=== PATIENT | male | born 1950 | race Caucasian/White ===

== ENCOUNTER 2022-01-14 12:40 | Outpatient (RCR) | payer OTHER, MEDICARE, BC, SELFPAY ==
[2022-01-14 13:06] LABS: Basophils Absolute Auto 0.02 K/uL (0.00-0.30); Basophils Percent Auto 0.4 % (0.0-3.0); Eosinophils Absolute Auto 0.14 K/uL (0.00-0.50); Eosinophils Percent Auto 2.9 % (0.0-7.0); Hematocrit 32.9 % (37.0-53.0); Hemoglobin* 10.8 gm/dL (13.5-17.5); Lymphocytes Absolute Auto 1.93 K/uL (0.90-2.90); Lymphocytes Percent Auto 39.7 % (20-44); Mean Corpuscular HGB Conc 33 gm/dL (32-36); Mean Corpuscular Hemoglobin 31 pg (26-34); Mean Corpuscular Volume 96 fL (80-100); Monocytes Percent Auto 10.7 % (0.0-11.0); Neutrophils Absolute Auto 2.25 K/uL (1.7-7.0); Neutrophils Percent Auto 46.3 % (42.0-72.0); Platelet Count* 143 K/uL (140-440); RDW Coefficient of Variation % 13.4 % (11.5-15.5); Red Blood Count 3.44 m/uL (4.30-5.90); White Blood Count* 4.86 K/uL (4.50-11.00)
[2022-01-14 13:14] LABS: Potassium* 4.3 mmol/L (3.6-5.1)
[2022-01-14 13:17] LABS: Creatinine* 1.1 mg/dL (0.5-1.5); Estimated Glomerular Filt Rate 72 ml/min; Glucose* 119 mg/dL (60-115)
[2022-01-14 13:20] LABS: Slide Review Reflex No
== END 2023-01-10 23:00 | disposition home or self-care (01) ==
LOC: LAB 12:40
PROVIDERS: PCP Internal Medicine
DX: Z94.0 Kidney transplant status (principal); Z79.899 Other long term (current) drug therapy
CPT/HCPCS: 36415; 82565; 82947; 84132; 85025

== ENCOUNTER 2022-03-30 13:30 | Outpatient (RCR) | payer OTHER, MEDICARE, BC, SELFPAY ==
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
== END 2022-03-30 14:39 | disposition home or self-care (01) ==
PROVIDERS: PCP Internal Medicine; Visit Provider Family Medicine
DX: M54.2 Cervicalgia (principal); Z51.89 Encounter for other specified aftercare
CPT/HCPCS: 97012; 97110; 97140; 97161; 97162

== ENCOUNTER 2023-01-13 09:35 | Outpatient (CLI) | payer MEDICARE, BC, SELFPAY | END 2023-01-13 09:36 | disposition home or self-care (01) | LOC: NFLDREF 12:39 | PROVIDERS: PCP Internal Medicine; Referring Provider Internal Medicine; Visit Provider Internal Medicine | DX: R06.02 Shortness of breath (principal); I10 Essential (primary) hypertension | CPT/HCPCS: 80053 ==

== ENCOUNTER 2023-02-18 07:59 | Outpatient (CLI) | payer MEDICARE, BC, SELFPAY | END 2023-02-18 08:00 | disposition home or self-care (01) | LOC: RAD 08:01 | PROVIDERS: PCP Internal Medicine; Visit Provider Internal Medicine | DX: I48.91 Unspecified atrial fibrillation (principal); I51.7 Cardiomegaly; I35.1 Nonrheumatic aortic (valve) insufficiency; I34.0 Nonrheumatic mitral (valve) insufficiency | CPT/HCPCS: 93306 ==

== ENCOUNTER 2023-03-15 08:45 | Outpatient (RCR) | payer OTHER, MEDICARE, BC, SELFPAY ==
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
== END 2023-03-21 09:02 | disposition home or self-care (01) ==
PROVIDERS: PCP Internal Medicine; Visit Provider Family Medicine
DX: M54.12 Radiculopathy, cervical region (principal); M54.16 Radiculopathy, lumbar region; M50.20 Other cervical disc displacement, unspecified cervical region; M50.30 Other cervical disc degeneration, unspecified cervical region; M51.26 Other intervertebral disc displacement, lumbar region; V89.2XXS Person injured in unspecified motor-vehicle accident, traffic, sequela; S13.4XXS Sprain of ligaments of cervical spine, sequela; Z51.89 Encounter for other specified aftercare
CPT/HCPCS: 97110; 97140; 97163

== ENCOUNTER 2023-08-05 08:59 | Outpatient (CLI) | payer MEDICARE, BC, SELFPAY ==
--- NOTE | 2023-08-05 09:22 | W.ANESCHARGE ---
Anesthesia Charges Start Date/Time Anesthesia Start Date: 08/05/23 Anesthesia Start Time: 09:40 Stop Date/Time Anesthesia Stop Date: 08/05/23 Anesthesia Stop Time: 10:04 Summary Extremes of Age - Over 70 or under 1: MDA
== END 2023-08-05 09:00 | disposition home or self-care (01) ==
LOC: OP CLINIC 08:59
PROVIDERS: PCP Internal Medicine; Visit Provider Internal Medicine
DX: K92.1 Melena (principal); K64.8 Other hemorrhoids; K57.30 Diverticulosis of large intestine without perforation or abscess without bleeding
CPT/HCPCS: 00811; 45378; 99100

== ENCOUNTER 2023-08-08 16:27 | Outpatient (CLI) | payer MEDICARE, BC, SELFPAY ==
[2023-08-08 22:38] LABS: PCR FLU A Negative PCR FLU A (Negative); PCR FLU B Negative PCR FLU B (Negative); PCR RSV Negative PCR RSV (Negative); SARS PCR* Negative SARS-CoV-2 (Negative)
== END 2023-08-08 16:28 | disposition home or self-care (01) ==
PROVIDERS: PCP Internal Medicine; Visit Provider Family Medicine
DX: R68.83 Chills (without fever) (principal)
CPT/HCPCS: 80048; 85025; 87631

== ENCOUNTER 2023-10-25 08:40 | Outpatient (CLI) | payer MEDICARE, BC, SELFPAY ==
--- OUTSIDE RECORDS SUMMARY | 2023-10-27 09:16 | XMS_ITS | Referral Summary ---
Author Name Unknown Organization [facility] Address [address] [place] [address] Care Team Providers Care Banquet Director Name Role Phone Elsewhere, Pcp Primary Care Provider Unavailabl e Source Comments Patient records contain information from all sites at [facility]. For routine questions regarding patient records, call [phone] during business hours, M-F 8:00 AM - 5:00 PM Central Time. Record requests for emergency care only can be directed to [phone] at any time.[facility] Encounters Date Type Department Care Team Description 08/08/2023 Orders Only Issac [facility] [place] [facility] in [place], [place] [address] [place] [address] External, Ordering Provider, MMiller from Last 3 Months Allergies Active Allergy Reactions Criticality Noted Date Comments Jay Inhibitors Cough 06/05/2013 Believed to have caused cough per [place] records Atomoxetine Other (see comments) 05/29/2004 Codeine Other (see comments) 05/28/2004 Phenytoin Hives (Reselect Reaction) 02/23/2010 Medications Medication Sig Dispensed Refills Start Date End Date Status melatonin 5 mg tablet Take 1 tablet by mouth every evening. 04/22/2017 Active coenzyme Q10 (CO Q-10) 200 mg capsule Take 1 tablet by mouth every evening. 05/22/2015 Active docosahexanoic acid/epa (FISH OIL ORAL) Take 1 capsule by mouth daily. 04/20/2013 Active MULTIVITAMIN ORAL Take 1 tablet by mouth daily. 05/22/2015 Active tacrolimus (PROGRAF) 1 mg capsuleIndications :Transplant Renal (HCC) Take 2 capsules (2 mg total) by mouth 2 (two) times a day. Take along with 0.5 mg caps for total dose 2.5 mg in the AM and 2 mg in the PM 360 capsule 3 01/20/2023 Active tacrolimus (Prograf) 0.5 mg capsuleIndications :Transplant Renal (HCC) Take 1 capsule (0.5 mg total) by mouth every morning. Take along with 1 mg caps for total dose 2.5 mg in the Am and 2 mg in the PM 90 capsule 3 01/20/2023 01/20/2024 Active mycophenolate (CELLCEPT) 250 mg capsuleIndications :Transplant Renal (HCC),High Risk Medication TAKE THREE CAPSULES BY MOUTH TWO TIMES A DAY 540 capsule 3 01/28/2023 Active metoprolol tartrate (LOPRESSOR) 25 mg tabletIndications: Transplant Renal (HCC) Take 1.5 tablets by mouth 2 times a day 270 tablet 3 02/21/2023 Active albuterol 90 mcg/actuation inhaler Inhale 2 puffs every 6 (six) hours as needed for shortness of breath or wheezing. 02/20/2022 Active gabapentin (NEURONTIN) 300 mg capsule Take 1-2 capsules by mouth at bedtime. Active tiZANidine (ZANAFLEX) 4 mg tablet Take 0.5 tablets by mouth every 6 (six) hours as needed for muscle spasms. 01/31/2023 Active cholecalciferol (VITAMIN D3) 125 mcg (5,000 Unit) capsule Take 125 mcg by mouth daily. Active B complex-vitamins (BALANCE B-50) tablet Take 1 tablet by mouth every evening. Active apixaban (ELIQUIS) 5 mg tablet Take 5 mg by mouth 2 (two) times a day. Active magnesium oxide (MAG-OX) 250 mg of magnesium tablet Take 250 mg by mouth 2 (two) times a day. Active turmeric 400 mg capsule Take 1 capsule by mouth 2 (two) times a day. Active cefUROXime (CEFTIN) 500 mg tablet Take 1 tablet (500 mg total) by mouth every 12 (twelve) hours. 12 tablet 03/30/2023 Active predniSONE (DELTASONE) 5 mg tablet take 0.5 tablets by mouth once daily. 45 tablet 3 05/09/2023 Active Active Problems Problem Noted Date Diagnosed Date Parotitis 03/30/2023 Otitis Externa Acute Left 03/30/2023 Obesity Body Mass Index 30-39.9 Adult 05/29/2019 Hypertriglyceridemia 05/29/2019 Congestive Heart Failure Vijaya stolic Chronic Heart Failure With Preserved Ejection Fraction 06/08/2016 Flutter Atrial 09/27/2015 Atrial Fibrillation Unspecified 09/26/2015 Coronary Artery Disease With Unstable Angina Dysthymia 04/28/2009 Major Depressive Disorder Single Episode Unspeci fied 04/23/2009 Overview: Depression Major NOS Peripheral Vascular Disease 04/23/2009 Overview: Claudication Immunodeficiency 07/27/2007 Overview: Immunosuppressed State NOS 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 Depression Major Recurrent Moderate 03/08/2006 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 Hypertension 05/28/2004 Immunizations Name Administration Dates Next Due Influenza (IM) Preservative Free 013,05/01/2012,03/27/2009,2006 Influenza Split 03/16/2011,03/27/2009,03/24/2001 Influenza, Seasonal, Injectable 05/17/2008,05/28,03/24/2001 Influenza, Unspecified 03/16/2011 PCV13 04/22/2014 PPSV23 05/01/2012,03/24/2001 SARS-COV-2 (COVID-19) - LUDMILA WHITLOCK (J&J)(Discontinued) 08/28/2020 Td, (Adult) Unspecified 12/14/2006 Tdap 05/01/2012 influenza vaccine quad (FLUZONE/FLUARIX) (6 months and older)(PF) 04/08/2016,04/22/2014,04/20/2013,2011,03/16/2011,03/27/2009,05/17/2008,1 07/20/2006,05/28/2004,03/24/2001 Social History Tobacco Use Types Packs/Day Years Used Date Smoking Tobacco: Never Smokeless Tobacco: Never Alcohol Use Standard Drinks/Week Comments Not Currently 0 (1 standard drink = 0.6 oz pur e alcohol) Social Connection and Isolation Panel [NHANES] A nswer Date Recorded Frequency of Communication with Friends and Fami ly Not on file 02/11/2020 How often do you get togethe r with friends or relatives? Three times a week 02/11/2020 Attends Gnosticist Services Not on file 02/10 Active Member of Clubs or Organizations Not on f ile 02/11/2020 Attends Club or Organization Meetings Not on pati e 02/11/2020 Marital Status Not on file 02/11/2020 AUDIT-C Answer Date Recorded Frequency of Alcohol Consumption 2-3 times a wee k 05/25/2019 Average Number of Drinks 1 or 2 019 Frequency of Binge Drinking Never 05/13 Overall Financial Resource Strain (CARDIA) Answe r Date Recorded How hard is it for you to pa y for the very basics like food, housing, medical care, and heating? Not very hard 04/05/2023 PHQ-2 Answer Date Recorded PHQ-2 Score 0 05/25/2019 [facility] - Occupational Stress Questionnaire Answer Date Recorded Do you feel stress - tense, restless, nervous, or anxious, or unable to sleep at night because your mind is troubled all the time - these days? Not at all 02/11/2020 Exercise Vital Sign Answer Date Recorde d On average, how many days pe r week do you engage in moderate to strenuous exercise (like a brisk walk)? 4 days 04/05/2023 On average, how many minutes do you engage in exercise at this level? 40 min 04/05/2023 Hunger Vital Sign Answer Date Recorded Within the past 12 months, y ou worried that your food would run out before you got the money to buy more. Never true 04/05/20 23 Within the past 12 months, t he food you bought just didn't last and you didn't have money to get more. Never true 04/05/2023 PRAPARE - Transportation Answer Date Re corded In the past 12 months, has l ack of transportation kept you from medical appointments or from getting medications? No 03/14 In the past 12 months, has l ack of transportation kept you from meetings, work, or from getting things needed for daily living? No 04/05/2023 Nutrition Answer Date Recorded Nutrition: EVOO Fat Source Unknown 04/05 On average, how many serving s of fruits and vegetables do you eat per day (serving size is equal to 1 cup or approximately the size of a tennis ball)? 3-5 04/05/2023 Dental Answer Date Recorded Dental: Regular Dentist Yes 04/05/20 Employment Answer Date Recorded Employment status Employed but not working due t o illness or injury 04/05/2023 Housing Stability Answer Date Recorded What is your living situation today? I [facility] live 04/05/2023 Education Answer Date Recorded What is the highest level of school you have completed or the highest degree you have received? Bachelor's degree (e.g., BA, AB, BS) 05/25/2019 Sex and Gender Information Value Date Recorded Sex Assigned at Male 05/08/2018 12:48 PM CANDY PULLER Gender Identity Male 05/08/2018 12:48 PM CANDY PULLER Sexual Orientation Straight 05/08/2018 12 :48 PM CANDY PULLER Last Filed Vital Signs Vital Sign Reading Time Taken Comments Blood Pressure 136/84 06/27/2023 11:15 AM CANDY PULLER Pulse 97 06/27/2023 11:15 AM CANDY PULLER Temperature 36.8 ??C (98.2 ??F) 03/30/2023 8:34 AM CD T Respiratory Rate 16 03/30/2023 8:34 AM CDT Oxygen Saturation 95% 03/30/2023 8:34 AM CDT Inhaled Oxygen Concentration - - Weight 90.8 kg (200 lb 2.8 oz) 03/30/2023 8:34 A M CDT Height 164.7 cm (5' 4.84) 03/24/2023 9:00 AM CD T Body Mass Index 33.47 03/24/2023 9:00 AM CDT Plan of Treatment Not on file Medical Devices Implanted Type Area Disability Manager Device Identifier Shelf Expiration Date Model / Serial / Lot Premier 4.0 X 12 - Hollins [id number] Implanted:Qty: 1 on 04/04/2015 Cardiac Stent [employer] Scientific Description:Device Manufactu rer - [employer]. Device Status Text - [id number]. Procedures Procedure Name Priority Date/Time Associated Diagnosis Comments TACROLIMUS LEVEL, B Routine 10/25/2023 8 :40 AM CDT EXTP BASIC METABOLIC PANEL, BLOOD Routine 08/08/2023 4:36 PM CANDY PULLER EXTP COMPLETE BLOOD COUNT, BLOOD Routine 08/08/2023 4:36 PM CANDY PULLER LIPID PANEL, S Routine 03/24/2023 6:45 AM CDT Transplant Renal (HCC) from Last 3 Months or Most Recently Relevant to Health Maintenance Results * Tacrolimus, Trough (10/25/2023 8:40 AM CDT) Pathologist [facility] [place] Tacrolimus, Trough 5.6 5.0-15.0 (Trough) ng/mL 10/26/2023 2:38 PM CDT [facility] Comment: ----ADDITIONAL INFORMATION---- Target steady-state trough concentrations vary depending on the type of transplant, concomitant immunosuppression, clinical/institutional protocols, and time post-transplant. Results should be interpreted in conjunction with this clinical information and any physical signs/symptoms of rejection/toxicity. Testing performed by Liquid Chromatography-Tandem Mass Spectrometry (LC-MS/MS). This test was developed and its performance characteristics determined by [facility] in a manner consistent with CLIA requirements. This test has not been cleared or approved by the U.S. Food and Drug Administration. Blood 10/25/2023 8:40 AM CDT 10/26/2023 11:11 AM CDT Lencho Mera M.D. LAB BLOOD NON ADD-ON [facility] [address] [place] [address] [facility] [address] [place] [address] [place] [address] * (ABNORMAL) EXT Basic Metabolic Panel, Blood (08/08/2023 4:36 PM CANDY PULLER) Pathologist [facility] [place] EXT Sodium 135 135 - 149 mmol/L SCANNED REPORT EXT Potassium 5.0 3.6 - 5.1 mmol/L SCANNED REPORT EXT Chloride 103 96 - 114 mmol/L SCANNED REPORT EXT CO2 21 20 - 32 mmol/L SCANNED REPORT EXT BUN (Blood Urea Nitrogen) 31(H) 7 - 30 mg/dL SCANNED REPORT EXT Creatinine 1.7(H) 0.5 - 1.5 mg/dL SCANNED REPORT EXT Estimated GFR (eGFR) 42 ml/min SCANNED REPORT EXT Calcium, Total 10.4 8.4 - 10.6 SCANNED REPORT EXT Glucose 133(H) 60 - 115 mg/dL SCANNED REPORT 08/08/2023 4:36 PM CANDY PULLER Narrative SCANNED REPORT - 08/17/2023 10:06 AM CANDY PULLER Source result document attached to Order Number [id number] ([id number]) dated 08/08/2023. External results verified in Extract by Cheyanne Sargent on 08/17/2023 at 10:03 AM. Ordering Provider Omer Moya NON ADD-ON SCANNED REPORT * (ABNORMAL) EXT Complete Blood Count, Blood (08/08/2023 4:36 PM CANDY PULLER) EXT Leukocytes 10.64 4.50 - 11.00 K/uL SCANNED REPORT EXT RBC 3.24(L) 4.30 - 5.90 m/uL SCANNED REPORT EXT Hemoglobin 10.0(L) 13.5 - 17.5 gm/dL SCANNED REPORT EXT Hematocrit 30.8(L) 37.0 - 53.0 % SCANNED REPORT EXT MCV 95 80 - 100 fL SCANNED REPORT EXT Platelet Count 147 140 - 440 K/uL SCANNED REPORT EXT Neutrophils 8.80(H) 1.7 - 7.0 K/uL SCANNED REPORT EXT Monocytes 0.80 0.00 - 0.90 K/UL SCANNED REPORT EXT Eosinophils 0.05 0.00 - 0.50 K/uL SCANNED REPORT EXT Basophils 0.05 0.00 - 0.30 K/uL SCANNED REPORT EXT Lymphocytes 1.00 0.90 - 2.90 K/uL SCANNED REPORT 08/08/2023 4:36 PM CANDY PULLER Narrative SCANNED REPORT - 08/17/2023 10:06 AM CANDY PULLER External results verified in Extract by Cheyanne Sargent on 08/17/2023 at 10:03 AM. Ordering Provider External M.D. LAB BLOO D NON ADD-ON SCANNED REPORT * (ABNORMAL) Lipid Panel (03/24/2023 6:45 AM CDT) Triglycerides 156(H) mg/dL 03/24/2023 8:00 AM CDT D[facility] Comment: ----REFERENCE VALUE---- Normal: <150 mg/dL Borderline High: 150-199 mg/dL High: 200-499 mg/dL Very High: > or =500 mg/dL Cholesterol, Total 142 mg/dL 2022 8:00 AM CDT DTL Comment: ----REFERENCE VALUE---- Desirable: < 200 mg/dL Borderline High: 200 - 239 mg/dL High: > or = 240 mg/dL Cholesterol, LDL, Calculated 81 mg/dL 03/24/2023 8:00 AM CDT DTL Comment: ----REFERENCE VALUE---- Desirable: <100 mg/dL Above Desirable: 100-129 mg/dL Borderline High: 130-159 mg/dL High: 160-189 mg/dL Very High: >=190 mg/dL ----ADDITIONAL INFORMATION---- LDL cholesterol calculated using the Parsons/NIH equation. Cholesterol, HDL, S 34(L) >=40 mg/dL 03/24/2023 8:00 AM CDT DTL Cholesterol, Non-HDL, Calculated 108 mg/dL 03/24/2023 8:00 AM CDT DTL Comment: ----REFERENCE VALUE---- Desirable: <130 mg/dL Above Desirable: 130-159 mg/dL Borderline High: 160-189 mg/dL High: 190-219 mg/dL Very High: > or =220 mg/dL Fasting (8 HR or more) Yes 03/24/2023 7:08 AM CDT DTL Blood (Blood, Venous) 03/24/2023 6:45 AM CDT 03/24/2023 7:08 AM CDT Kayla Roberts APRN, C.N.P., D.N.P. LAB BLOOD ADD-ON [facility] [place] [address] [place] [address], [place] DTL [facility] [address] [place] [address] from Last 3 Months or Most Recently Relevant to Health Maintenance Additional Health Concerns Infection Onset Date Last Indicated Protective Environment 01/11/2023 3 Advance Directives For more information, please contact: [phone] Documents on File Type Date Recorded Patient Blast Furnace Helper Expl anation Advance Directives 05/31/2016 12:00 AM Vinita cevallos document. See document viewer. * Full Code (Latest Code Status on File) Date Activated Date Inactivated Comments 03/30/2023 3:07 AM 03/30/2023 4:27 PM Question Answer Comments Full Code: Discussed Care Teams Banquet Director Relationship Specialty Start Date End Date Elsewhere, Pcp PCP - General Admissions Clinician 05/29/19 [facility] [address] [place], [place] [address] Laboratory Medicine 04/07/20
--- OUTSIDE RECORDS SUMMARY | 2023-10-27 09:16 | XMS_ITS ---
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 Marked as Active Follow-up on 03/04/1998 Kidney CoordinatorTXP POST KIDNEY NURSE TEAM 1 [facility] Phone: N/A Fax: N/A Email: N/A Infection History Noted Survival Infection Treatment Organism Resolved 03/30/2023 25 years Parotitis Donor Information Organ ABO Source Meets Risk Criteria HLA Match Mismatches Cross Match Right Kidney Transplanted O DBD A: B: DR: T cell (Negative) Right Kidney Donor Serology Results Anti-HBcAb HBC Total: Negative HBsAg HBsAg: Negative HBsAb No results on file HBV DNA No results on file Anti-HCV HCV: Negative HCV RNA No results on file HAV No results on file Anti-HIV I/II HIV-1: Negative HIV RNA No results on file Anti-HTLV I/II HTLV: Negative Coccidioides No results on file Anti-CMV CMV IgG: Negative Quantiferon TB No results on file EBV Total No results on file EBV IgG No results on file EBV IgM No results on file EBNA No results on file Measles No results on file Mumps No results on file Rubella No results on file Varicella Zoster No results on file HSV 1 No results on file HSV 2 No results on file Toxoplasm a No results on file Cryptococcus Ag No results on file Histoplasma No results on file Strongyloides No results on file Schistosom a No results on file Trypanosoma cruzi No results on file RPR/VDRL RPR: Positive Syphilis No results on file RSV No results on file SARS CoV-2 No results on file HBV IRMA No results on file HCV IRMA No results on file Care Team Name Role Phone Fax Email TXP POST KIDNEY NURSE TEAM 1 [facility] Kidney Coordinator N/A N/A N/A Nancy Escobar M.D. Transplant External Managing Cdl Bulk Driver [phone] [email or web address] Post-Transplant Pre-Transplant Transplanted: 03/04/1998 Referred: 12/13/1991 Discharged: 03/10/1998 Center waitlisted: 5
--- OUTSIDE RECORDS SUMMARY | 2023-10-27 09:16 | XMS_ITS ---
Author Name Unknown Organization [facility] Address [address] [place] [address] Care Team Providers Care Control Clerk Subassembly Name Role Phone Unavailable Unavailable Unavailable Surgery Details Not on file Complications Check Surgery Details section. Procedure Estimated Blood Loss Check Surgery Details section. Procedure Findings Check Surgery Details section. Procedure Specimens Taken Check Surgery Details section.
--- OUTSIDE RECORDS SUMMARY | 2023-10-27 09:16 | XMS_ITS | Clinical Summary ---
Author Name Unknown Organization [facility] Address [place], [place] [address] Care Team Providers Care [place] Room Hand Name Role Phone Alonso Coreas MD Primary Care Provider Allergies Active Allergy Reactions Criticality Noted Date Comments Jay Inhibitors Cough 06/05/2013 Believed to have caused cough per [place] records Atomoxetine Dizziness 05/29/2004 Codeine Other - Describe In Comment Field 05/28/2004 Patient states his pain systems were worse while taking the medication. Other reaction(s): Other (see comments) Phenytoin Hives 02/23/2010 Medications Medication Sig Dispensed Refills Start Date End Date Status tacrolimus (PROGRAF) 1 mg capsule Take 2 capsules by mouth 2 times daily. 0 12/18/2012 Active predniSONE (DELTASONE) 2.5 mg tablet Take 1 tablet by mouth once daily with a meal. 0 12/18/2012 Active multivitamin (DAILY MULTI-VITAMIN) tablet Take 1 tablet by mouth once daily. 0 12/18/2012 Active omega-3 fatty acids-vitamin E (FISH OIL) 1,000 mg cap Take 1 capsule by mouth 2 times daily. 0 12/18/2012 Active mycophenolate (CELLCEPT) 500 mg tablet Take 1 tablet by mouth 2 times daily. 0 12/18/2012 Active ferrous sulfate, 65 mg elemental, (IRON, FERROUS SULFATE,) 325 mg (65 mg iron) tablet Take 1 tablet by mouth once daily with a meal. 0 12/18/2012 Active Magnesium 100 mg tablet Take 1 tablet by mouth once daily. 0 12/18/2012 Active metoprolol tartrate (LOPRESSOR) 25 mg tablet Take 1 tablet by mouth 2 times daily. 0 03/23/2013 Active clopidogrel (PLAVIX) 75 mg tablet Take 75 mg by mouth once daily. Active ciclopirox solution (LOPROX) 8 % solution Apply to thick, discolored toenails once daily for a week. After a week, file the nails. Repeat this for 9 months, or until nails are clear. 02/12/2020 Active ciclopirox solution (LOPROX) 8 % solution Apply to thick, discolored toenails once daily for a week. After a week, file the nails. Repeat this for 9 months, or until nails are kim 02/20/2020 Active ketoconazole 2% topical (NIZORAL) cream APPLY ONTO AFFECTED AREA(S) OF SKIN 2-3 TIMES PER WEEK. 11/04/2020 Active mupirocin (BACTROBAN OINTMENT) ointment APPLY TOPICALLY TO AFFECTED AREA(S) THREE TIMES A DAY. 05/19/2020 Active triamcinolone 0.1% TOPICAL (KENALOG) 0.1 % lotion APPLY 2 TO 3 DROPS ONTO AFFECTED AREA(S) TWICE A DAY FOR ONE WEEK, THEN TWICE A DAY ON WEEKENDS ONLY. 11/04/2020 Active psyllium (METAMUCIL) 0.52 gram capsule Take 0.52 g by mouth. Active mycophenolate (CELLCEPT) 250 mg capsule TAKE THREE CAPSULES BY MOUTH TWO TIMES A DAY 10/25/2020 Active predniSONE (DELTASONE) 5 mg tablet TAKE 0.5 TABLET BY MOUTH ONCE DAILY 10/25/2020 Active tacrolimus 0.1% (PROTOPIC) 0.1 % ointment APPLY ONTO AFFECTED(s) AREAS OF SKIN TWO TIMES PER DAY TUESDAY - TUESDAY. 11/07/2020 Active benzonatate (TESSALON) 200 mg capsuleIndications:A cute cough Take 1 Capsule (200 mg) by mouth 3 times daily if needed for Cough. 20 Capsule 02/20/2022 Active albuterol HFA (PRO-AIR; VENTOLIN; PROVENTIL) 90 mcg/actuation inhalerIndications:W heezing,Acute cough Inhale 1-2 Puffs by mouth every 4 hours if needed for Wheezing. 1 Each 02/20/2022 Active tiZANidine (ZANAFLEX) 4 mg tabletIndications:Ar thropathy of cervical facet joint TAKE ONE TABLET BY MOUTH EVERY SIX HOURS NEEDED FOR MUSCLE SPASM 36 Tablet 4 01/31/2023 Active Eliquis 5 mg tablet TAKE ONE TABLET BY MOUTH TWICE DAILY* 01/20/2023 Active gabapentin (NEURONTIN) 300 mg capsuleIndications:L umbar radiculopathy Take 1-2 Capsules (300-600 mg) by mouth at bedtime. 36 Capsule 1 02/10/2023 Active Active Problems Problem Noted Date Diagnosed Date S/P kidney transplant 03/23/2013 Immunosuppressed status 03/23/2013 Asperger's disorder 10/05/2010 Sensorineural hearing loss, bilateral 03/02/2010 Adjustment disorder with mixed anxiety and depre ssed mood 02/10/2010 Immunizations Name Administration Dates Next Due Tdap 05/01/2012 Social History Tobacco Use Types Packs/Day Years Used Date Smoking Tobacco: Never Smokeless Tobacco: Never Tobacco Cessation:Counseling Given: Yes Alcohol Use Standard Drinks/Week Comments Not Asked 0 (1 standard drink = 0.6 oz pur e alcohol) Social Connections Answer Date Recorded Frequency of Communication with Friends and Fami ly Not on file 06/13/2021 Financial Resource Strain Answer Date R ecorded Difficulty of Paying Living Expenses Not on file 06/13/2021 Difficulty of Paying Living Expenses Not on file 06/13/2021 Sex and Gender Information Value Date Recorded Sex Assigned at Not on file Gender Identity Not on file Sexual Orientation Not on file Obstetrics History Last Filed Vital Signs Vital Sign Reading Time Taken Comments Blood Pressure 145/92 04/07/2023 11:15 AM CDT Pulse 82 04/07/2023 11:15 AM CDT Temperature 36.9 ??C (98.4 ??F) 04/07/2023 11:15 AM C DT Respiratory Rate 18 02/20/2022 4:22 PM CDT Oxygen Saturation 97% 04/07/2023 11:15 AM CDT Inhaled Oxygen Concentration - - Weight 93.4 kg (206 lb) 02/20/2022 4:22 PM CDT Height 165.1 cm (5' 5) 05/23/2015 11:00 AM FLOOR COVERING LAYER Body Mass Index 34.28 05/23/2015 11:00 AM FLOOR COVERING LAYER Plan of Treatment Health Maintenance Due Date Last Done Comments Pneumococcal series for age 65+ (1 of 2 - PCV) 957 Depression screening for age 12+ 1962 BMI (ht and wt on same day) for age 18+ 1968 Hepatitis C screening for age 18-79 1968 Zoster (shingles) series for age 50+ (1 of 2) 12/24/18 70 Colonoscopy through age 75 12/25/1995 Lipids for age 45-75 12/25/1995 Medicare Wellness for age 65+ 12/25/2015 COVID-19 vaccine series (2 - Irvin risk series) 09/1108/28/2020 Tetanus booster 05/01/2022 05/01/2012 Influenza for age 65+ 02/12/2024 Tdap Completed 05/01/2012 Care Teams [place] Hand Relationship Specialty Start Date End Date Alonso Coreas MD [address] [place] [address] PCP - General Internal Medicine 10/28/22
--- OUTSIDE RECORDS SUMMARY | 2023-10-27 09:16 | XMS_ITS | Encounter Summary ---
Author Name Unknown Organization [facility] Address [address] [place] [address] Care Team Providers Care Sql Report Developer Name Role Phone Elsewhere, Pcp Primary Care Provider Unavailabl e Encounter Details Date Type Department Care Team ([facility] st Contact Info) Description 08/08/2023 Orders Only Issac Guidry [place] [facility]eneration in [place], [place] [address] [place] [address] External, Ordering Provider, Kumar Social History Tobacco Use Types Packs/Day Years [...] relatives? Three times a week 02/11/2020 Attends Jew Services Not on file 02/10 Active Member [...] Answer Date Recorded PHQ-2 Score 0 05/25/2019 [facility] - Occupational Stress Questionnaire Answer Date Recorded [...] money to buy more. Never true 04/05/20 Within the past 12 months, t he [...] your living situation today? I have a [facility] place to live 04/05/2023 Education Answer Date Recorded What is the highest level of school you have completed or the highest degree you have received? Bachelor's degree (e.g., BA, AB, BS) 05/25/2019 Sex and Gender Information Value Date Recorded Sex Assigned at Male 05/08/2018 12:48 PM BRIDGE MANAGER Gender Identity Male 05/08/2018 12:48 PM BRIDGE MANAGER Sexual Orientation Straight 05/08/2018 12 :48 PM BRIDGE MANAGER documented as of this encounter Plan of Treatment Not on file documented as of this encounter Procedures Procedure Name Priority Date/Time Associated Diagnosis Comments EXTP BASIC METABOLIC PANEL, BLOOD Routine 08/08/2023 4:36 PM BRIDGE MANAGER EXTP COMPLETE BLOOD COUNT, BLOOD Routine 08/08/2023 4:36 PM BRIDGE MANAGER documented in this encounter Results * (ABNORMAL) EXT Basic Metabolic Panel, Blood (08/08/2023 4:36 PM BRIDGE MANAGER) EXT Sodium 135 135 - 149 mmol/L [...] 115 mg/dL SCANNED REPORT 08/08/2023 4:36 PM BRIDGE MANAGER Narrative SCANNED REPORT - 08/17/2023 10:06 AM BRIDGE MANAGER Source result document attached to Order Number [id number] ([id number]) dated 08/08/2023. External results verified in Extract by Cheyanne Sargent on 08/17/2023 at 10:03 AM. Ordering Provider External Kumar LAB NORMANO Griffin NON ADD-ON SCANNED REPORT * (ABNORMAL) EXT Complete Blood Count, Blood (08/08/2023 4:36 PM BRIDGE MANAGER) EXT Leukocytes 10.64 4.50 - 11.00 K/uL [...] 2.90 K/uL SCANNED REPORT 08/08/2023 4:36 PM BRIDGE MANAGER Narrative SCANNED REPORT - 08/17/2023 10:06 AM BRIDGE MANAGER External results verified in Extract by Cheyanne Sargent on 08/17/2023 at 10:03 AM. Ordering Provider External Kumar LAB NORMANO D NON ADD-ON SCANNED REPORT documented in this encounter Visit Diagnoses Not on filedocumented in this encounter Additional Health Concerns Infection Onset Date Last Indicated Resolved Time Protective Environment 01/11/2023 01/11/2023 Assessment Noted Time PHQ-9 Depression Total Score: 0 05/25/20 19 11:12 AM BRIDGE MANAGER documented as of this encounter Care Teams Sql Report Developer Relationship Specialty Start Date End Date Elsewhere, Pcp PCP - General Card Cutter 05/29/19 [facility] [address] [place], [place] [address] Laboratory Medicine 04/07/20 documented as of this encounter
--- OUTSIDE RECORDS SUMMARY | 2023-10-27 09:16 | XMS_ITS | Encounter Summary ---
Author Name Unknown Organization [facility] Address [address] [place] [address] Care Team Providers Care Flag Maker Name Role Phone Elsewhere, Pcp Primary Care Provider Unavailabl e Encounter Details Date Type Department Care Team (Latest Contact Info) Description 03/29/2023 Intake [facility] Social History Tobacco Use Types Packs/Day Years [...] relatives? Three times a week 02/11/2020 Attends Amish Services Not on file 02/10 Active Member [...] Answer Date Recorded PHQ-2 Score 0 05/25/2019 [place] [facility] Occupat ional [facility] - Occupational Stress [...] your living situation today? I have a [facility] place to live 04/05/2023 Education Answer Date Recorded What is the highest level of school you have completed or the highest degree you have received? Bachelor's degree (e.g., BA, AB, BS) 05/25/2019 Sex and Gender Information Value Date Recorded Sex Assigned at Male 05/08/2018 12:48 PM FILTER TIP CATCHER Gender Identity Male 05/08/2018 12:48 PM FILTER TIP CATCHER Sexual Orientation Straight 05/08/2018 12 :48 PM FILTER TIP CATCHER documented as of this encounter Plan of Treatment Not on file documented as of this encounter Visit Diagnoses Not on filedocumented in this encounter Additional Health Concerns Infection Onset Date Last Indicated Resolved Time Protective Environment 01/11/2023 01/11/2023 COVID19 Pending 03/29/2023 03/29/2023 03/29/2023 6 :17 PM CDT Assessment Noted Time PHQ-9 Depression Total Score: 0 05/25/20 11:12 AM FILTER TIP CATCHER documented as of this encounter Care Teams Flag Maker Relationship Specialty Start Date End Date Elsewhere, Pcp PCP - General Derrick Boat Operator 05/29/19 [facility] [address] [place], [place] [address] Laboratory Medicine 04/07/20 documented as of this encounter
--- OUTSIDE RECORDS SUMMARY | 2023-10-27 09:16 | XMS_ITS | Clinical Summary ---
Author Name Unknown Organization [facility] Address [address] [place] [address] Care Team Providers Care Rewrite Editor Name Role Phone Elsewhere, Pcp Primary Care Provider Unavailabl e Source Comments Patient records contain information from all sites at [facility]. For routine questions regarding patient records, call [phone] during business hours, M-F 8:00 AM - 5:00 PM Central Time. 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 from Last 3 Months Immunizations Name Administration Dates Next Due Influenza (IM) Preservative Free 013,05/01/2012,03/27/2009,2006 Influenza Split 03/16/2011,03/27/2009,03/24/2001 Influenza, Seasonal, Injectable 05/17/2008,05/28,03/24/2001 Influenza, Unspecified 03/16/2011 PCV13 04/22/2014 PPSV23 05/01/2012,03/24/2001 SARS-COV-2 (COVID-19) - LUDMILA WHITLOCK (J&J)(Discontinued) 08/28/2020 Td, (Adult) Unspecified 12/14/2006 Tdap 05/01/2012 influenza vaccine quad (FLUZONE/FLUARIX) (6 months and older)(PF) 04/08/2016,04/22/2014,04/20/2013,2011,03/16/2011,03/27/2009,05/17/2008,1 07/20/2006,05/28/2004,03/24/2001 Family History Medical History Relation Name Comments Hypertension Father Prakash Ramos Diabetes Maternal Grandmother Rosina Bejarano Colon cancer Mother Miriam Ramos Hypertension Mother Miriam Ramos Kidney disease Mother Miriam Ramos Relation Name Status Comments Father Prakash Ramos Maternal Grandmother Rosina Bejarano Mother Miriam Ramos Social History Tobacco Use Types Packs/Day Years [...] relatives? Three times a week 02/11/2020 Attends Congregational Services Not on file 02/10 Active Member [...] Answer Date Recorded PHQ-2 Score 0 05/25/2019 [facility] Occupat ional Health - Occupational Stress [...] your living situation today? I have a [facility] place to live 04/05/2023 Education Answer Date Recorded What is the highest level of school you have completed or the highest degree you have received? Bachelor's degree (e.g., BA, AB, BS) 05/25/2019 Sex and Gender Information Value Date Recorded Sex Assigned at Male 05/08/2018 12:48 PM POLICE DETENTION ATTENDANT Gender Identity Male 05/08/2018 12:48 PM POLICE DETENTION ATTENDANT Sexual Orientation Straight 05/08/2018 12 :48 PM POLICE DETENTION ATTENDANT Last Filed Vital Signs Vital Sign Reading Time Taken Comments Blood Pressure 136/84 06/27/2023 11:15 AM POLICE DETENTION ATTENDANT Pulse 97 06/27/2023 11:15 AM POLICE DETENTION ATTENDANT Temperature 36.8 ??C (98.2 ??F) 03/30/2023 8:34 AM CD T Respiratory Rate 16 03/30/2023 8:34 AM CDT Oxygen Saturation 95% 03/30/2023 8:34 AM CDT Inhaled Oxygen Concentration - - Weight 90.8 kg (200 lb 2.8 oz) 03/30/2023 8:34 A M CDT Height 164.7 cm (5' 4.84) 03/24/2023 9:00 AM CD T Body Mass Index 33.47 03/24/2023 9:00 AM CDT Plan of Treatment Health Maintenance Due Date Last Done Comments Depression Monitoring (PHQ-9) 1950 Zoster Vaccines (1 of 2) 1969 Pneumococcal vaccine (65+ years) (4 of 4 - PPSV23 or PCV20) 05/01/2017 04/22/2014, 05/01/2012, 03/24/2001 COVID-19 Vaccine (2 - Irvin risk series) 09/25/2020 08/28/2020 DTaP,Tdap,and Td Vaccines (2 - Td or Tdap) 05/01/2022 05/01/2012, 12/14/2006 Influenza Vaccine (#1) 2023 6, 04/22/2014, 04/20/2013, Additional history exists Fall Risk Screen (Annual) 06/13/2023 Lipid (Cholesterol) Screening 03/24/2024 03/24/2023, 05/15/2020, 05/28/2019, Additional history exists Office Visit for Blood Pressure Check / Re-check 03/24/2024 03/24/2023 Fasting Glucose for Diabetes Screening 08/08/2026 08/08/2023, 03/30/2023, 03/29/2023, Additional history exists Hepatitis C Screening Completed 03/11/2005 HPV Vaccines Aged Out No longer eligi ble based on patient's age to complete this topic Medical Devices Implanted Type Area Sped Teacher Device Identifier Shelf Expiration Date Model / Serial / Lot Premier 4.0 X 12 - Hollins [id number] Implanted:Qty: 1 on 04/04/2015 Cardiac Stent [employer] Description:Device Manufactu rer - [employer]. Device Status Text - [id number]. Procedures Procedure Name Priority Date/Time Associated Diagnosis Comments TACROLIMUS LEVEL, B Routine 10/25/2023 8 :40 AM CDT EXTP BASIC METABOLIC PANEL, BLOOD Routine 08/08/2023 4:36 PM POLICE DETENTION ATTENDANT EXTP COMPLETE BLOOD COUNT, BLOOD Routine 08/08/2023 4:36 PM POLICE DETENTION ATTENDANT LIPID PANEL, S Routine 03/24/2023 6:45 AM CDT Transplant Renal (HCC) from Last 3 Months or Most Recently Relevant to Health Maintenance Results * Tacrolimus, Trough (10/25/2023 8:40 AM CDT) Tacrolimus, Trough 5.6 5.0-15.0 (Trough) ng/mL 10/26/2023 2:38 PM CDT [facility] Comment: ----ADDITIONAL INFORMATION---- Target steady-state trough concentrations vary depending on the type of transplant, concomitant immunosuppression, clinical/institutional protocols, and time post-transplant. Results should be interpreted in conjunction with this clinical information and any physical signs/symptoms of rejection/toxicity. Testing performed by Liquid Chromatography-Tandem Mass Spectrometry (LC-MS/MS). This test was developed and its performance characteristics determined by [facility] in a manner consistent with CLIA requirements. This test has not been cleared or approved by the U.S. Food and Drug Administration. Blood 10/25/2023 8:40 AM CDT 10/26/2023 11:11 AM CDT Lencho Mera M.D. LAB BLOOD NON ADD-ON [facility] [address] [place] [address] [facility] [address] [place] [address] [place] [address] * (ABNORMAL) EXT Basic Metabolic Panel, Blood (08/08/2023 4:36 PM POLICE DETENTION ATTENDANT) [facility] EXT Sodium 135 135 - 149 mmol/L [...] 115 mg/dL SCANNED REPORT 08/08/2023 4:36 PM POLICE DETENTION ATTENDANT Narrative SCANNED REPORT - 08/17/2023 10:06 AM POLICE DETENTION ATTENDANT Source result document attached to Order Number [id number] ([id number]) dated 08/08/2023. External results verified in Extract by Cheyanne Sargent on 08/17/2023 at 10:03 AM. Ordering Provider Omer Heath LAB ODALYS Moya NON ADD-ON SCANNED REPORT * (ABNORMAL) EXT Complete Blood Count, Blood (08/08/2023 4:36 PM POLICE DETENTION ATTENDANT) EXT Leukocytes 10.64 4.50 - 11.00 K/uL [...] 2.90 K/uL SCANNED REPORT 08/08/2023 4:36 PM POLICE DETENTION ATTENDANT Narrative SCANNED REPORT - 08/17/2023 10:06 AM POLICE DETENTION ATTENDANT External results verified in Extract by Cheyanne Sargent on 08/17/2023 at 10:03 AM. Ordering Provider Omer Moya NON ADD-ON Performing Organization Address [facility] Co de Phone Number SCANNED REPORT * (ABNORMAL) Lipid Panel (03/24/2023 [...] Roberts APRN, C.N.P., D.N.P. LAB BLOOD ADD-ON [facility] [address] [place] [address], [facility] [address] [place] [address] from Last 3 Months or Most Recently Relevant to Health Maintenance Additional Health Concerns Infection Onset Date Last Indicated Protective Environment 01/11/2023 3 Advance Directives For more information, please contact: [phone] Documents on File Type Date Recorded Patient Link And Link Knitting Machine Operator Expl anation Advance Directives 05/31/2016 12:00 AM Vinita cevallos document. See document viewer. * Full Code (Latest Code Status on File) Date Activated Date Inactivated Comments 03/30/2023 3:07 AM 03/30/2023 4:27 PM Question Answer Comments Full Code: Discussed Care Teams Rewrite Editor Relationship Specialty Start Date End Date Elsewhere, Pcp PCP - General Cheese Production Supervisor 05/29/19 [facility] [address] [place], [place] [address] Laboratory Medicine 04/07/20
== END 2023-10-25 08:41 | disposition home or self-care (01) ==
LOC: NFLDREF 10-27 09:14
PROVIDERS: PCP Internal Medicine; Referring Provider Internal Medicine; Visit Provider Internal Medicine
DX: Q87.81 Alport syndrome (principal); D84.821 Immunodeficiency due to drugs; Z79.899 Other long term (current) drug therapy; Z94.0 Kidney transplant status
CPT/HCPCS: 80048; 82043; 82570

== ENCOUNTER 2023-11-16 10:31 | Outpatient (CLI) | payer MEDICARE, BC, SELFPAY ==
--- OUTSIDE RECORDS SUMMARY | 2023-11-16 10:33 | XMS_ITS | Referral Summary ---
Author Organization [facility] Address [address] [place] [address] Care Team Providers Care Metal Punch Press Operator Name Role Phone Elsewhere, Pcp Primary Care Provider Unavailabl e Source Comments Patient records contain information from all sites at [facility]. For routine questions regarding patient records, call [phone] during business hours, M-F 8:00 AM - 5:00 PM Central Time. Record requests for emergency care only can be directed to [phone] at any time.[facility] Encounters Date Type Department Care Team Description 10/25/2023 Orders Only Issac delacruz [facility] for Transplantation and Clinical Regeneration in [place], [place] [address] [place] [address] External, Ordering ProviderKumar 10/25/2023 Orders Only Issac delacruz [facility] Trans[facility] Clinical Regeneration in [place], [place] [address] [place] [address] External, Ordering ProviderKumar from Last 3 Months Allergies Active Allergy Reactions Criticality Noted Date Comments Jay Inhibitors Cough 06/05/2013 Believed to have caused cough per [place] records Atomoxetine Other (see comments) 05/29/2004 Codeine [...] relatives? Three times a week 02/11/2020 Attends Cheondoism Services Not on file 02/10 Active Member [...] Answer Date Recorded PHQ-2 Score 0 05/25/2019 [facility]at [facility] - Occupational Stress Questionnaire Answer Date Recorded [...] your living situation today? I have a [facility] place to live 04/05/2023 Education Answer Date Recorded What is the highest level of school you have completed or the highest degree you have received? Bachelor's degree (e.g., BA, AB, BS) 05/25/2019 Sex and Gender Information Value Date Recorded Sex Assigned at Male 05/08/2018 12:48 PM ACCOUNTING REPRESENTATIVE Gender Identity Male 05/08/2018 12:48 PM ACCOUNTING REPRESENTATIVE Sexual Orientation Straight 05/08/2018 12 :48 PM ACCOUNTING REPRESENTATIVE Last Filed Vital Signs Vital Sign Reading Time Taken Comments Blood Pressure 136/84 06/27/2023 11:15 AM ACCOUNTING REPRESENTATIVE Pulse 97 06/27/2023 11:15 AM ACCOUNTING REPRESENTATIVE Temperature 36.8 ??C (98.2 ??F) 03/30/2023 8:34 [...] on file Medical Devices Implanted Type Area Supervisor Public Message Service Device Identifier Shelf Expiration Date Model / Serial / Lot Premier 4.0 X 12 - Hollins [id number] Implanted:Qty: 1 on 04/04/2015 Cardiac Stent [employer]words Description:Device Manufactu rer - [employer]. Device Status Text - [id number]. Procedures Procedure Name Priority Date/Time Associated Diagnosis Comments EXTP BASIC METABOLIC PANEL, BLOOD Routine 10/25/2023 8:40 AM CDT EXTP COMPLETE BLOOD COUNT, BLOOD Routine 10/25/2023 8:40 AM CDT TACROLIMUS LEVEL, B Routine 10/25/2023 8 :40 AM CDT EXTM ALBUMIN, RANDOM, U Routine 10/25/2023 12:01 AM CDT LIPID PANEL, S Routine 03/24/2023 6:45 AM CDT Transplant Renal (HCC) from Last 3 Months or Most Recently Relevant to Health Maintenance Results * EXT Basic Metabolic Panel, Blood (10/25/2023 8:40 AM CDT) EXT Sodium 139 135 - 149 mmol/L SCANNED REPORT EXT Potassium 4.7 3.6 - 5.1 mmol/L SCANNED REPORT EXT Chloride 105 96 - 114 mmol/L SCANNED REPORT EXT CO2 25 20 - 32 mmol/L SCANNED REPORT EXT BUN (Blood Urea Nitrogen) 26 7 - 30 mg/dL SCANNED REPORT EXT Creatinine 1.1 0.5 - 1.5 mg/dL SCANNED REPORT EXT Estimated GFR (eGFR) 71 ml/min SCANNED REPORT EXT Calcium, Total 10.5 8.4 - 10.6 mg/dL SCANNED REPORT EXT Glucose 109 60 - 115 mg/dL SCANNED REPORT 10/25/2023 8:40 AM CDT Narrative SCANNED REPORT - 11/02/2023 11:21 AM CDT Source result document attached to Order Number [id number] ([id number]) dated 10/25/2023. External results verified in Extract by Nenita Walker on 11/02/2023 at 11:18 AM. Ordering Provider External Kumar Moya NON ADD-ON SCANNED REPORT * (ABNORMAL) EXT Complete Blood Count, Blood (10/25/2023 8:40 AM CDT) EXT Leukocytes 7.43 4.50 - 11.00 K/uL SCANNED REPORT EXT RBC 3.70(L) 4.30 - 5.90 m/uL SCANNED REPORT EXT Hemoglobin 10.9(L) 13.5 - 17.5 gm/dL SCANNED REPORT EXT Hematocrit 34.7(L) 37.0 - 53.0 % SCANNED REPORT EXT MCV 94 80 - 100 fL SCANNED REPORT EXT Platelet Count 232 140 - 440 K/uL SCANNED REPORT EXT Neutrophils 4.34 1.7 - 7.0 K/uL SCANNED REPORT EXT Lymphocytes 2.00 0.90 - 2.90 K/uL SCANNED REPORT EXT Monocytes 0.76 0.00 - 0.90 K/UL SCANNED REPORT EXT Eosinophils 0.31 0.00 - 0.50 K/uL SCANNED REPORT EXT Basophils 0.04 0.00 - 0.30 K/uL SCANNED REPORT 10/25/2023 8:40 AM CDT Narrative SCANNED REPORT - 11/02/2023 11:21 AM CDT External results verified in Extract by Nenita Walker on 11/02/2023 at 11:18 AM. Ordering Provider External M.DChaim LAB BLOO D NON ADD-ON SCANNED REPORT * Tacrolimus, Trough (10/25/2023 8:40 AM CDT) Tacrolimus, Trough 5.6 5.0-15.0 (Trough) ng/mL 10/26/2023 2:38 PM CDT [facility] Comment: ----ADDITIONAL INFORMATION---- Target steady-state trough concentrations vary depending on the type of transplant, concomitant immunosuppression, clinical/institutional protocols, and time post-transplant. Results should be interpreted in conjunction with this clinical information and any physical signs/symptoms of rejection/toxicity. Testing performed by Liquid Chromatography-Tandem Mass Spectrometry (LC-MS/MS). This test was developed and its performance characteristics determined by [facility] in a manner consistent with CLIA requirements. This test has not been cleared or approved by the U.S. Food and Drug Administration. Blood 10/25/2023 8:40 AM CDT 10/26/2023 11:11 AM CDT Lencho Mera M.D. LAB BLOOD NON ADD-ON [facility] [address] [place] [address] [facility] [address] [place] [address] [place] [address] * (ABNORMAL) EXT Albumin, Random, Urine (10/25/2023 12:01 AM CDT) EXT Creatinine, Urine 49.0 mg/dL SCANNED REPORT EXT Microalbumin-R andom, U 24 mg/dL SCANNED REPORT EXT Albumin/Creati nine Ratio 480(H) 0 - 30 MG/G SCANNED REPORT 10/25/2023 12:0 1 AM CDT Narrative SCANNED REPORT - 10/28/2023 4:52 PM CDT External results verified in Extract by Cheyanne Sargent on 10/28/2023 at 04:49 PM. Ordering Provider External Kumar LAB URIN E ORDERABLES Performing Organization Address [facility] Co de Phone Number [...] Roberts APRN, C.N.P., D.N.P. LAB BLOOD ADD-ON [facility] [address] [place] [address], [facility] [address] [place] [address] from Last 3 Months or Most Recently Relevant to Health Maintenance Additional Health Concerns Infection Onset Date Last Indicated Protective Environment 01/11/2023 3 Advance Directives For more information, please contact: [phone] Documents on File Type Date Recorded Patient Vocal Music Teacher Expl anation Advance Directives 05/31/2016 12:00 AM Vinita cevallos document. See document viewer. * Full Code (Latest Code Status on File) Date Activated Date Inactivated Comments 03/30/2023 3:07 AM 03/30/2023 4:27 PM Question Answer Comments Full Code: Discussed Care Teams Metal Punch Press Operator Relationship Specialty Start Date End Date Elsewhere, Pcp PCP - General Needle Leader 05/29/19 [facility] [address] [place], [place] [address] Laboratory Medicine 04/07/20
--- OUTSIDE RECORDS SUMMARY | 2023-11-16 10:33 | XMS_ITS | Encounter Summary ---
Author Organization [facility] Address [address] [place] [address] Care Team Providers Care Assistant Executive Housekeeper Name Role Phone Elsewhere, Pcp Primary Care Provider Unavailabl e Encounter Details Date Type Department Care Team ([facility] st Contact Info) Description 10/25/2023 Orders Only Issac Guidry [place] [facility] Trans[facility] Clinical Regeneration in [place], [place] [address] [place] [address] External, Ordering Provider, Kumar Social History Tobacco [...] relatives? Three times a week 02/11/2020 Attends Anglican Services Not on file 02/10 Active Member [...] Answer Date Recorded PHQ-2 Score 0 05/25/2019 [facility] [place] of Occupat ional Health - Occupational Stress [...] Sex Assigned at Male 05/08/2018 12:48 PM PARTS COUNTER SALES PERSON Gender Identity Male 05/08/2018 12:48 PM PARTS COUNTER SALES PERSON Sexual Orientation Straight 05/08/2018 12 :48 PM PARTS COUNTER SALES PERSON documented as of this encounter Plan of Treatment Not on file documented as of this encounter Procedures Procedure Name Priority Date/Time Associated Diagnosis Comments EXTP BASIC METABOLIC PANEL, BLOOD Routine 10/25/2023 8:40 AM CDT EXTP COMPLETE BLOOD COUNT, BLOOD Routine 10/25/2023 8:40 AM CDT documented in this encounter Results * EXT Basic Metabolic Panel, Blood [...] Source result document attached to Order Number [id number] ([id number]) dated 10/25/2023. External results verified in Extract by Nenita Walker on 11/02/2023 at 11:18 AM. Ordering Provider External MMiller LAB NORMANO D NON ADD-ON SCANNED REPORT * (ABNORMAL) EXT [...] LAB BLOO D NON ADD-ON SCANNED REPORT documented in this encounter Visit Diagnoses Not on filedocumented in this encounter Additional Health Concerns Infection Onset Date Last Indicated Resolved Time Protective Environment 01/11/2023 01/11/2023 Assessment Noted Time PHQ-9 Depression Total Score: 0 05/25/20 19 11:12 AM PARTS COUNTER SALES PERSON documented as of this encounter Care Teams Assistant Executive Housekeeper Relationship Specialty Start Date End Date Elsewhere, Pcp PCP - General Mixed Livestock Farmer 05/29/19 [facility] [address] [place], [place] [address] Laboratory Medicine 04/07/20 documented as of this encounter
--- OUTSIDE RECORDS SUMMARY | 2023-11-16 10:33 | XMS_ITS | Encounter Summary ---
Author Organization [facility] Address [address] [place] [address] Care Team Providers Care Industrial Arts Teacher Name Role Phone Elsewhere, Pcp Primary Care Provider Unavailabl e Encounter Details Date Type Department Care Team ([facility] st Contact Info) Description 10/25/2023 Orders Only Issac Guidry [place] [facility] Regeneration in [place], [place] [address] [place] [address] External, Ordering Provider, Kumar Social History Tobacco [...] relatives? Three times a week 02/11/2020 Attends Oriental Orthodox Services Not on file 02/10 Active Member [...] Answer Date Recorded PHQ-2 Score 0 05/25/2019 [facility] [place] of Occupat ional Health - Occupational Stress [...] Sex Assigned at Male 05/08/2018 12:48 PM POLYSILICON PREPARATION WORKER Gender Identity Male 05/08/2018 12:48 PM POLYSILICON PREPARATION WORKER Sexual Orientation Straight 05/08/2018 12 :48 PM POLYSILICON PREPARATION WORKER documented as of this encounter Plan of Treatment Not on file documented as of this encounter Procedures Procedure Name Priority Date/Time Associated Diagnosis Comments EXTM ALBUMIN, RANDOM, U Routine 10/25/2023 12:01 AM CDT documented in this encounter Results * (ABNORMAL) EXT Albumin, Random, Urine (10/25/2023 [...] 10/28/2023 at 04:49 PM. Ordering Provider External M.D. LAB URIN E ORDERABLES SCANNED REPORT documented in this encounter Visit Diagnoses Not on filedocumented in this encounter Additional Health Concerns Infection Onset Date Last Indicated Resolved Time Protective Environment 01/11/2023 01/11/2023 Assessment Noted Time PHQ-9 Depression Total Score: 0 05/25/20 19 11:12 AM POLYSILICON PREPARATION WORKER documented as of this encounter Care Teams Industrial Arts Teacher Relationship Specialty Start Date End Date Elsewhere, Pcp PCP - General Bridge Manager 05/29/19 [facility] [address] [place], [place] [address] Laboratory Medicine 04/07/20 documented as of this encounter
--- OUTSIDE RECORDS SUMMARY | 2023-11-16 10:33 | XMS_ITS ---
Author Organization [facility] Address [address] [place] [address] Care Team Providers Care Gasoline Service Attendant Name Role Phone Unavailable Unavailable Unavailable Surgery Details Not on file Complications Check Surgery Details section. Procedure Estimated Blood Loss Check Surgery Details section. Procedure Findings Check Surgery Details section. Procedure Specimens Taken Check Surgery Details section.
--- OUTSIDE RECORDS SUMMARY | 2023-11-16 10:33 | XMS_ITS | Encounter Summary ---
Author Organization [facility] Address [address] [place] [address] Care Team Providers Care Unmanned Aircraft Systems Roboticist Name Role Phone Elsewhere, Pcp Primary Care Provider Unavailabl e Encounter Details Date Type Department Care Team ([facility] st Contact Info) Description 08/08/2023 Orders Only Issac Guidry [place] [facility] Trans[facility] Clinical Regeneration in [place], [place] [address] [place] [address] External, Ordering Provider, Kumar Social History Tobacco [...] Answer Date Recorded PHQ-2 Score 0 05/25/2019 [facility] [place] of Occupat ional Health - Occupational Stress [...] Sex Assigned at Male 05/08/2018 12:48 PM RESEARCH INSTRUMENTATION TECHNICIAN Gender Identity Male 05/08/2018 12:48 PM RESEARCH INSTRUMENTATION TECHNICIAN Sexual Orientation Straight 05/08/2018 12 :48 PM RESEARCH INSTRUMENTATION TECHNICIAN documented as of this encounter Plan of Treatment Not on file documented as of this encounter Procedures Procedure Name Priority Date/Time Associated Diagnosis Comments EXTP BASIC METABOLIC PANEL, BLOOD Routine 08/08/2023 4:36 PM RESEARCH INSTRUMENTATION TECHNICIAN EXTP COMPLETE BLOOD COUNT, BLOOD Routine 08/08/2023 4:36 PM RESEARCH INSTRUMENTATION TECHNICIAN documented in this encounter Results * (ABNORMAL) EXT Basic Metabolic Panel, Blood (08/08/2023 4:36 PM RESEARCH INSTRUMENTATION TECHNICIAN) EXT Sodium 135 135 - 149 mmol/L [...] 115 mg/dL SCANNED REPORT 08/08/2023 4:36 PM RESEARCH INSTRUMENTATION TECHNICIAN Narrative SCANNED REPORT - 08/17/2023 10:06 AM RESEARCH INSTRUMENTATION TECHNICIAN Source result document attached to Order Number [id number] ([id number]) dated 08/08/2023. External results verified in Extract by Cheyanne Sargent on 08/17/2023 at 10:03 AM. Ordering Provider External MMiller LAB BLOO D NON ADD-ON SCANNED REPORT * (ABNORMAL) EXT Complete Blood Count, Blood (08/08/2023 4:36 PM RESEARCH INSTRUMENTATION TECHNICIAN) EXT Leukocytes 10.64 4.50 - 11.00 K/uL [...] 2.90 K/uL SCANNED REPORT 08/08/2023 4:36 PM RESEARCH INSTRUMENTATION TECHNICIAN Narrative SCANNED REPORT - 08/17/2023 10:06 AM RESEARCH INSTRUMENTATION TECHNICIAN External results verified in Extract by Cheyanne Sargent on 08/17/2023 at 10:03 AM. Ordering Provider External Kumar LAB NORMANO Griffin NON ADD-ON SCANNED REPORT documented in this encounter Visit Diagnoses Not on filedocumented in this encounter Additional Health Concerns Infection Onset Date Last Indicated Resolved Time Protective Environment 01/11/2023 01/11/2023 Assessment Noted Time PHQ-9 Depression Total Score: 0 05/25/20 19 11:12 AM RESEARCH INSTRUMENTATION TECHNICIAN documented as of this encounter Care Teams Unmanned Aircraft Systems Roboticist Relationship Specialty Start Date End Date Elsewhere, Pcp PCP - General National Sales Consultant 05/29/19 [facility] [place] [facility] [address] [place], [place] [address] Laboratory Medicine 04/07/20 documented as of this encounter
--- OUTSIDE RECORDS SUMMARY | 2023-11-16 10:33 | XMS_ITS | Clinical Summary ---
Author Organization [facility] Address [address] [place] [address] Care Team Providers Care Hazard Mitigation Officer Name Role Phone Elsewhere, Pcp Primary Care Provider Unavailabl e Source Comments Patient records contain information from all sites at [facility]. For routine questions regarding patient records, call [phone] during business hours, M-F 8:00 AM - 5:00 PM Central Time. Record requests for emergency care only can be directed to [phone] at any time.[facility] Allergies Active Allergy Reactions Criticality Noted Date Comments Jay Inhibitors Cough 06/05/2013 Believed to have caused cough per [place] records Atomoxetine Other (see comments) 05/29/2004 Codeine [...] Care Team Description 10/25/2023 Orders Only Issac Jessica [facility] Transplantation and Clinical Regeneration in [place], [place] [address] [place] [address] External, Ordering Provider, MMiller 10/25/2023 Orders Only Issac delacruz [facility] [place] Trans[facility] and Clinical [facility] in [place], [place] [address] [place] [address] External, Ordering Provider, MMiller from Last 3 Months Immunizations Name Administration [...] relatives? Three times a week 02/11/2020 Attends Taoist Services Not on file 02/10 Active Member [...] Answer Date Recorded PHQ-2 Score 0 05/25/2019 [facility] of Occupat ional Health - Occupational [...] your living situation today? I have a [facility] place to live 04/05/2023 Education Answer Date Recorded What is the highest level of school you have completed or the highest degree you have received? Bachelor's degree (e.g., BA, AB, BS) 05/25/2019 Sex and Gender Information Value Date Recorded Sex Assigned at Male 05/08/2018 12:48 PM SCAFFOLDING HELPER Gender Identity Male 05/08/2018 12:48 PM SCAFFOLDING HELPER Sexual Orientation Straight 05/08/2018 12 :48 PM SCAFFOLDING HELPER Last Filed Vital Signs Vital Sign Reading Time Taken Comments Blood Pressure 136/84 06/27/2023 11:15 AM SCAFFOLDING HELPER Pulse 97 06/27/2023 11:15 AM SCAFFOLDING HELPER Temperature 36.8 ??C (98.2 ??F) 03/30/2023 8:34 [...] 03/24/2024 03/24/2023 Fasting Glucose for Diabetes Screening 10/24/2026 10/25/2023, 08/08/2023, 03/30/2023, Additional history exists Hepatitis C Screening Completed 03/11/2005 HPV Vaccines Aged Out No longer eligi ble based on patient's age to complete this topic Medical Devices Implanted Type Area Application Chemist Device Identifier Shelf Expiration Date Model / Serial / Lot Premier 4.0 X 12 - Hollins [id number] Implanted:Qty: 1 on 04/04/2015 Cardiac Stent [employer] Description:Device Manufactu rer - [employer] Device Status Text - [id number]. Procedures Procedure Name Priority Date/Time Associated Diagnosis [...] Metabolic Panel, Blood (10/25/2023 8:40 AM CDT) [facility] EXT Sodium 139 135 - 149 mmol/L [...] Source result document attached to Order Number [id number] ([id number]) dated 10/25/2023. External results verified in Extract by Nenita Walker on 11/02/2023 at 11:18 AM. Ordering Provider External Kumar LAB BLOO D NON ADD-ON SCANNED REPORT * (ABNORMAL) EXT Complete Blood Count, Blood (10/25/2023 8:40 AM CDT) [facility] EXT Leukocytes 7.43 4.50 - 11.00 K/uL [...] 11/02/2023 at 11:18 AM. Ordering Provider External M.Marita LAB BLOO D NON ADD-ON SCANNED REPORT * Tacrolimus, Trough (10/25/2023 8:40 AM CDT) Tacrolimus, Trough 5.6 5.0-15.0 (Trough) ng/mL 10/26/2023 2:38 PM CDT [facility] Comment: ----ADDITIONAL INFORMATION---- Target steady-state trough concentrations vary depending on the type of transplant, concomitant immunosuppression, clinical/institutional protocols, and time post-transplant. Results should be interpreted in conjunction with this clinical information and any physical signs/symptoms of rejection/toxicity. Testing performed by Liquid Chromatography-Tandem Mass Spectrometry (LC-MS/MS). This test was developed and its performance characteristics determined by [facility] in a manner consistent with CLIA requirements. This test has not been cleared or approved by the U.S. Food and Drug Administration. Blood 10/25/2023 8:40 AM CDT 10/26/2023 11:11 AM CDT Lencho Mera M.D. LAB BLOOD NON ADD-ON [facility] [address] [place] [address] [facility] [address] [place] [address] [place] [address] * (ABNORMAL) EXT Albumin, Random, Urine (10/25/2023 [...] M.D. LAB URIN E ORDERABLES SCANNED REPORT * (ABNORMAL) Lipid Panel (03/24/2023 [...] Roberts APRN, C.N.P., D.N.P. LAB BLOOD ADD-ON [facility] [address] [place] [address], [place] DTL [facility] [address] [place] [address] from Last 3 Months or Most Recently Relevant to Health Maintenance Additional Health Concerns Infection Onset Date Last Indicated Protective Environment 01/11/2023 Advance Directives For more information, please contact: [phone] Documents on File Type Date Recorded Patient Soiled Linen Distributor Expl anation Advance Directives 05/31/2016 12:00 AM Vinita cevallos document. See document viewer. * Full Code (Latest Code Status on File) Date Activated Date Inactivated Comments 03/30/2023 3:07 AM 03/30/2023 4:27 PM Question Answer Comments Full Code: Discussed Care Teams Hazard Mitigation Officer Relationship Specialty Start Date End Date Elsewhere, Pcp PCP - General Bioinformaticist 05/29/19 [facility] [address] [place], [place] [address] Laboratory Medicine 04/07/20
--- OUTSIDE RECORDS SUMMARY | 2023-11-16 10:34 | XMS_ITS | Encounter Summary ---
Author Organization [facility] Address [address] [place] [address] Care Team Providers Care Lumber Estimator Name Role Phone Elsewhere, Pcp Primary Care [...] relatives? Three times a week 02/11/2020 Attends Bahai Services Not on file 02/10 Active Member [...] Answer Date Recorded PHQ-2 Score 0 05/25/2019 [facility] [place] of Occupat ional Health - Occupational Stress [...] your living situation today? I have a [facility] place to live 04/05/2023 Education Answer Date Recorded What is the highest level of school you have completed or the highest degree you have received? Bachelor's degree (e.g., BA, AB, BS) 05/25/2019 Sex and Gender Information Value Date Recorded Sex Assigned at Male 05/08/2018 12:48 PM GERIATRIC PHYSICIAN Gender Identity Male 05/08/2018 12:48 PM GERIATRIC PHYSICIAN Sexual Orientation Straight 05/08/2018 12 :48 PM GERIATRIC PHYSICIAN documented as of this encounter Plan of Treatment Not on file documented as of this encounter Visit Diagnoses Not on filedocumented in this encounter Additional Health Concerns Infection Onset Date Last Indicated Resolved Time Protective Environment 01/11/2023 01/11/2023 COVID19 Pending 03/29/2023 03/29/2023 03/29/2023 6 :17 PM CDT Assessment Noted Time PHQ-9 Depression Total Score: 0 05/25/20 11:12 AM GERIATRIC PHYSICIAN documented as of this encounter Care Teams Lumber Estimator Relationship Specialty Start Date End Date Elsewhere, Pcp PCP - General Cnc Grinder 05/29/19 [facility] [address] [place], [place] [address] Laboratory Medicine 04/07/20 documented as of this encounter
--- OUTSIDE RECORDS SUMMARY | 2023-11-16 10:34 | XMS_ITS | Clinical Summary ---
Author Organization [employer] [facility] Address [place], [place] [address] Care Team Providers Care Want Ad Clerk Name Role Phone Alonso Coreas MD Primary Care Provider Allergies Active Allergy Reactions Criticality Noted Date Comments Jay Inhibitors Cough 06/05/2013 Believed to have caused cough per [place] records Atomoxetine Dizziness 05/29/2004 Codeine Other - [...] 165.1 cm (5' 5) 05/23/2015 11:00 AM BORE MILL OPERATOR FOR PLASTIC Body Mass Index 34.28 05/23/2015 11:00 AM BORE MILL OPERATOR FOR PLASTIC Plan of Treatment Health Maintenance Due Date [...] 65+ 02/12/2024 Tdap Completed 05/01/2012 Care Teams Want Ad Clerk Relationship Specialty Start Date End Date Alonso Coreas MD [address] [place] [address] PCP - General Internal Medicine 10/28/22
--- OUTSIDE RECORDS SUMMARY | 2023-11-16 10:34 | XMS_ITS ---
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 Transplant External Managing Pullman Car Repairer [phone] [email or web address] Post-Transplant Pre-Transplant Transplanted: 03/04/1998 Referred: 12/13/1991 Discharged: 03/10/1998 Center waitlisted: 5
--- NOTE | 2023-11-16 11:00 | CRLHL7_ITS ---
For Patients: As a result of the Century Cures Act, medical imaging exams and procedure reports are released immediately into your electronic medical record. You may view this report before your referring provider. If you have questions, please contact your health care provider. INDICATION: Cough. Follow-up 11/08/2023 chest x-ray. TECHNIQUE: CT chest was acquired with 90 cc Isovue 370 IV contrast. COMPARISON: Chest radiographs 11/08/2019. FINDINGS: Lungs and pleura: Large right pleural effusion with mild associated atelectasis. No left-sided pleural effusion. No pneumothorax. Mild mosaic attenuation throughout the lungs, likely reflecting areas of air trapping related to small airways disease. 10 millimeter ground-glass attenuation nodule in the right middle lobe (series 3, image 56). Few tiny sub 4 millimeter solid nodules (for example 3 millimeter left upper lobe nodule, series 3, image 45). Heart and vasculature: Mild left atrial enlargement. Thoracic aorta and pulmonary artery are normal in caliber.Mild aortic valve calcification. Mitral annular calcifications. Moderate coronary artery calcification. Lymph nodes/mediastinum: No mediastinal, hilar, or axillary adenopathy. Chest wall: Mild gynecomastia. Upper abdomen: Status post cholecystectomy. Bilateral renal atrophy. Atherosclerosis. Bones: Mild thoracic spondylosis. Moderate/severe lower cervical spondylosis. IMPRESSION: 1. Large right pleural effusion with mild associated atelectasis. 2. 10 millimeter ground-glass attenuation nodule in the right middle lobe. This may reflect a localized infectious/inflammatory process. Recommend 6-12 month follow-up chest CT per Fleischner society guidelines. 3. Few additional tiny sub 4 millimeter nodules. These can be reassessed at 6-12 month follow-up as well. 4. Multiple cardiac findings, including mild left atrial enlargement, moderate coronary artery calcification, mild aortic valve calcification and mitral annular calcifications. 5. Mild mosaic attenuation within the lungs, likely reflecting areas of air trapping related to small airways disease. Please note that all CT scans at this facility use dose modulation, iterative reconstruction, and/or weight-based dosing when appropriate to reduce radiation dose to as low as reasonably achievable. Dictated by Ion Richardson MD @ 11/17/2023 8:38:24 AM (Electronically Signed)
== END 2023-11-16 10:32 | disposition home or self-care (01) ==
LOC: CT 10:31
PROVIDERS: PCP Internal Medicine; Visit Provider Internal Medicine
DX: R05.9 Cough, unspecified (principal); J90 Pleural effusion, not elsewhere classified; R91.8 Other nonspecific abnormal finding of lung field; I70.0 Atherosclerosis of aorta
CPT/HCPCS: 71260; Q9967

== ENCOUNTER 2023-12-22 09:49 | Outpatient (CLI) | payer MEDICARE, BC, SELFPAY ==
--- OUTSIDE RECORDS SUMMARY | 2023-12-22 09:54 | XMS_ITS | Encounter Summary ---
Author Organization [facility] Address [address] [place] [address] Care Team Providers Care Vp Product Marketing Name Role Phone Elsewhere, Pcp Primary Care Provider Unavailabl e Encounter Details Date Type Department Care Team ([facility] st Contact Info) Description 10/25/2023 Orders Only Issac Guidry [place] [facility] Trans[facility] and Clinical Regeneration in [place], [place] [address] [place] [address] External, Ordering Provider, Kumar Social History Tobacco [...] relatives? Three times a week 02/11/2020 Attends Mosque Services Not on file 02/10 Active Member [...] Answer Date Recorded PHQ-2 Score 0 05/25/2019 [facility] [place] of Occupat ional Health - Occupational Stress [...] Sex Assigned at Male 05/08/2018 12:48 PM ALODIZE MACHINE OPERATOR Gender Identity Male 05/08/2018 12:48 PM ALODIZE MACHINE OPERATOR Sexual Orientation Straight 05/08/2018 12 :48 PM ALODIZE MACHINE OPERATOR documented as of this encounter Plan of [...] Total Score: 0 05/25/20 19 11:12 AM ALODIZE MACHINE OPERATOR documented as of this encounter Care Teams Vp Product Marketing Relationship Specialty Start Date End Date Elsewhere, Pcp PCP - General Disaster Response Director 05/29/19 [facility] [address] [place], [place] [address] Laboratory Medicine 04/07/20 documented as of this encounter
--- OUTSIDE RECORDS SUMMARY | 2023-12-22 09:54 | XMS_ITS | Encounter Summary ---
Author Organization [facility] Address [address] [place] [address] Care Team Providers Care Plumber Name Role Phone Elsewhere, Pcp Primary Care [...] relatives? Three times a week 02/11/2020 Attends Confucianism Services Not on file 02/10 Active Member [...] Answer Date Recorded PHQ-2 Score 0 05/25/2019 [facility] [place] of Occupat ional Health - Occupational Stress [...] your living situation today? I have a [facility] place to live 04/05/2023 Education Answer Date Recorded What is the highest level of school you have completed or the highest degree you have received? Bachelor's degree (e.g., BA, AB, BS) 05/25/2019 Sex and Gender Information Value Date Recorded Sex Assigned at Male 05/08/2018 12:48 PM RENDERER Gender Identity Male 05/08/2018 12:48 PM RENDERER Sexual Orientation Straight 05/08/2018 12 :48 PM RENDERER documented as of this encounter Plan of Treatment Not on file documented as of this encounter Visit Diagnoses Not on filedocumented in this encounter Additional Health Concerns Infection Onset Date Last Indicated Resolved Time Protective Environment 01/11/2023 01/11/2023 COVID19 Pending 03/29/2023 03/29/2023 03/29/2023 6 :17 PM CDT Assessment Noted Time PHQ-9 Depression Total Score: 0 05/25/20 11:12 AM RENDERER documented as of this encounter Care Teams Plumber Relationship Specialty Start Date End Date Elsewhere, Pcp PCP - General Mink Farmer 05/29/19 [facility] [address] [place], [place] [address] Laboratory Medicine 04/07/20 documented as of this encounter
--- OUTSIDE RECORDS SUMMARY | 2023-12-22 09:54 | XMS_ITS | Encounter Summary ---
Author Organization [facility] Address [address] [place] [address] Care Team Providers Care Electrical Solderer Name Role Phone Elsewhere, Pcp Primary Care Provider Unavailabl e Encounter Details Date Type Department Care Team ([facility] st Contact Info) Description 11/28/2023 Orders Only Issac Guidry [place] for Transplantation and Clinical Regeneration in [place], [place] [address] [place] [address] Julieth Webster R.N., C.C.T.C. [address] [place] [phone] Transplant Renal (HCC) (Primary Dx) Social History Tobacco Use Types Packs/Day Years [...] Answer Date Recorded PHQ-2 Score 0 05/25/2019 [facility] - Occupational Stress Questionnaire Answer Date [...] Sex Assigned at Male 05/08/2018 12:48 PM INSECTICIDE SPRAYER Gender Identity Male 05/08/2018 12:48 PM INSECTICIDE SPRAYER Sexual Orientation Straight 05/08/2018 12 :48 PM INSECTICIDE SPRAYER documented as of this encounter Plan of Treatment Not on file documented as of this encounter Visit Diagnoses Diagnosis Transplant Renal (HCC)- Primary documented in this encounter Additional Health Concerns Infection Onset Date Last Indicated Resolved Time Protective Environment 01/11/2023 01/11/2023 Assessment Noted Time PHQ-9 Depression Total Score: 0 05/25/20 19 11:12 AM INSECTICIDE SPRAYER documented as of this encounter Care Teams Electrical Solderer Relationship Specialty Start Date End Date Elsewhere, Pcp PCP - General Fire Prevention Specialist 05/29/19 [facility] [address] [place], [place] [address] Laboratory Medicine 04/07/20 documented as of this encounter
--- OUTSIDE RECORDS SUMMARY | 2023-12-22 09:54 | XMS_ITS ---
Author Organization [facility] Address [address] [place] [address] Care Team Providers Care Insurance Processor Name Role Phone Unavailable Unavailable Unavailable Surgery Details Not on file Complications Check Surgery Details section. Procedure Estimated Blood Loss Check Surgery Details section. Procedure Findings Check Surgery Details section. Procedure Specimens Taken Check Surgery Details section.
--- OUTSIDE RECORDS SUMMARY | 2023-12-22 09:54 | XMS_ITS | Encounter Summary ---
Author Organization [facility] Address [address] [place] [address] Care Team Providers Care American Board Certified Orthotist Name Role Phone Elsewhere, Pcp Primary Care Provider Unavailabl e Encounter Details Date Type Department Care Team ([facility] st Contact Info) Description 10/25/2023 Orders Only Issac Guidry [place] [facility] in [place], [place] [address] [place] [address] External, Ordering Provider, Kumar Social History Tobacco [...] relatives? Three times a week 02/11/2020 Attends Islam Services Not on file 02/10 Active Member [...] Answer Date Recorded PHQ-2 Score 0 05/25/2019 [facility] [place] of Occupat ional Health - Occupational Stress [...] Sex Assigned at Male 05/08/2018 12:48 PM ACID CUTTER Gender Identity Male 05/08/2018 12:48 PM ACID CUTTER Sexual Orientation Straight 05/08/2018 12 :48 PM ACID CUTTER documented as of this encounter Plan of [...] Source result document attached to Order Number [id number] ([id number]) dated 10/25/2023. External results verified in Extract [...] Total Score: 0 05/25/20 19 11:12 AM ACID CUTTER documented as of this encounter Care Teams American Board Certified Orthotist Relationship Specialty Start Date End Date Elsewhere, Pcp PCP - General Art Manager 05/29/19 [facility] [address] [place], [place] [address] Laboratory Medicine 04/07/20 documented as of this encounter
--- OUTSIDE RECORDS SUMMARY | 2023-12-22 09:54 | XMS_ITS | Encounter Summary ---
Author Organization [facility] Address [address] [place] [address] Care Team Providers Care Plastic Hospital Products Assembler Name Role Phone Elsewhere, Pcp Primary Care Provider Unavailabl e Reason for Visit * Reason Comments Med Refill Encounter Details Date Type Department Care Team ([facility] st Contact Info) Description 12/12/2023 Refill Division of Nephrology and Hypertension in [place], [place] [address] [place] [address] Mayank Recio M.D. [address] [place] [phone] Med Refill Social History Tobacco Use Types Packs/Day Years [...] relatives? Three times a week 02/11/2020 Attends Latter-Day Services Not on file 02/10 Active Member [...] Answer Date Recorded PHQ-2 Score 0 05/25/2019 [facility] of Occupat ional [facility] - Occupational Stress Questionnaire Answer Date Recorded [...] Sex Assigned at Male 05/08/2018 12:48 PM REAL ESTATE MANAGER Gender Identity Male 05/08/2018 12:48 PM REAL ESTATE MANAGER Sexual Orientation Straight 05/08/2018 12 :48 PM REAL ESTATE MANAGER documented as of this encounter Plan of Treatment Not on file documented as of this encounter Visit Diagnoses Diagnosis Transplant Renal (HCC) documented in this encounter Additional Health Concerns Infection Onset Date Last Indicated Resolved Time Protective Environment 01/11/2023 01/11/2023 Assessment Noted Time PHQ-9 Depression Total Score: 0 05/25/20 19 11:12 AM REAL ESTATE MANAGER documented as of this encounter Care Teams Plastic [facility] Products Assembler Relationship Specialty Start Date End Date Elsewhere, Pcp PCP - General Anode Rebuilder 05/29/19 [facility] [address] [place], [place] [address] Laboratory Medicine 04/07/20 documented as of this encounter
--- OUTSIDE RECORDS SUMMARY | 2023-12-22 09:54 | XMS_ITS | Referral Summary ---
Author Organization [facility] Address [address] [place] [address] Care Team Providers Care Lumber Carrier Name Role Phone Elsewhere, Pcp Primary Care Provider Unavailabl e Source Comments Patient records contain information from all sites at [facility]. For routine questions regarding patient records, call [phone] during business hours, M-F 8:00 AM - 5:00 PM Central Time. Record requests for emergency care only can be directed to [phone] at any time.[facility] Encounters Date Type Department Care Team Description 12/12/2023 Refill Division of Nephrology and Hypertension in [place], [place] [address] [place] [address] Mayank Recio M.D. Med Refill 11/28/2023 [facility] [place], [place] [address] [place] [address] Julieth Webster R.N., C.C.T.C. Transplant Renal (HCC) (Primary Dx) 11/28/2023 Refill [facility] for Transplantation and Clinical Regeneration in [place], [place] [address] [place] [address] Julieth Webster R.N., C.C.T.C. Med Refill 10/25/2023 Orders [facility] in [place], [place] [address] [place] [address] External, Ordering ProviderKumar 10/25/2023 Orders Only Issac Guidry [facility] Transplantation and Clinical Regeneration in [place], [place] [address] [place] [address] External, Ordering ProviderKumar from Last 3 Months Allergies Active Allergy Reactions Criticality Noted Date Comments Jay Inhibitors Cough 06/05/2013 Believed to have caused cough per [place] records Atomoxetine Other (see comments) 05/29/2004 Codeine [...] daily. 05/22/2015 Active tacrolimus (PROGRAF) 1 mg capsuleIndicatio ns:Transplant Renal (HCC) Take 2 capsules (2 mg total) by mouth 2 (two) times a day. Take along with 0.5 mg caps for total dose 2.5 mg in the AM and 2 mg in the PM 360 capsule 3 01/20/2023 Active tacrolimus (Prograf) 0.5 mg capsuleIndicatio ns:Transplant Renal (HCC) Take 1 capsule (0.5 mg total) by mouth every morning. Take along with 1 mg caps for total dose 2.5 mg in the Am and 2 mg in the PM 90 capsule 3 01/20/2023 4 Active mycophenolate (CELLCEPT) 250 mg capsuleIndicatio ns:Transplant Renal (HCC),High Risk Medication TAKE THREE CAPSULES BY MOUTH TWO TIMES A DAY 540 capsule 3 01/28/2023 Active albuterol 90 mcg/actuation inhaler Inhale 2 [...] once daily. 45 tablet 3 05/09/2023 Active losartan (COZAAR) 25 mg tabletIndication s:Transplant Renal (HCC) Take 1 tablet (25 mg total) by mouth at bedtime. 90 tablet 3 11/29/2023 Active metoprolol tartrate (Lopressor) 25 mg tabletIndication s:Transplant Renal (HCC) Take 1.5 tablets by mouth 2 times a day 270 tablet 1 12/13/2023 Active metoprolol tartrate (LOPRESSOR) 25 mg tabletIndication s:Transplant Renal (HCC) Take 1.5 tablets by mouth 2 times a day 270 tablet 3 02/21/2023 4 Discontinued Active Problems Problem Noted Date Diagnosed Date [...] relatives? Three times a week 02/11/2020 Attends Mormon Services Not on file 02/10 Active Member [...] Answer Date Recorded PHQ-2 Score 0 05/25/2019 [facility] [place] of Occupat ional Health - Occupational Stress [...] Sex Assigned at Male 05/08/2018 12:48 PM BIT SHARPENER Gender Identity Male 05/08/2018 12:48 PM BIT SHARPENER Sexual Orientation Straight 05/08/2018 12 :48 PM BIT SHARPENER Last Filed Vital Signs Vital Sign Reading Time Taken Comments Blood Pressure 136/84 06/27/2023 11:15 AM BIT SHARPENER Pulse 97 06/27/2023 11:15 AM BIT SHARPENER Temperature 36.8 ??C (98.2 ??F) 03/30/2023 8:34 [...] on file Medical Devices Implanted Type Area Special Agent Group Insurance Device Identifier Shelf Expiration Date Model / Serial / Lot Premier 4.0 X 12 - [id number] [id number] Implanted:Qty: 1 on 04/04/2015 Cardiac Stent Mobilygen Description:Device Manufactu rer - [employer]. Device Status Text - [id number]. Procedures Procedure Name Priority Date/Time Associated Diagnosis [...] Metabolic Panel, Blood (10/25/2023 8:40 AM CDT) [facility] EXT Sodium 139 135 - 149 [...] Source result document attached to Order Number [id number] ([id number]) dated 10/25/2023. External results verified in Extract by Nenita Walker on 11/02/2023 at 11:18 AM. Ordering Provider External M.DChaim LAB BLOO D NON ADD-ON SCANNED REPORT * (ABNORMAL) EXT Complete Blood Count, Blood (10/25/2023 8:40 AM CDT) [facility] EXT Leukocytes 7.43 4.50 - 11.00 [...] on 11/02/2023 at 11:18 AM. Ordering Provider Omer Heath LAB BLOO D NON ADD-ON SCANNED REPORT * Tacrolimus, Trough (10/25/2023 8:40 AM CDT) Tacrolimus, Trough 5.6 5.0-15.0 (Trough) ng/mL 10/26/2023 2:38 PM CDT [facility] Comment: ----ADDITIONAL INFORMATION---- Target steady-state trough concentrations vary depending on the type of transplant, concomitant immunosuppression, clinical/institutional protocols, and time post-transplant. Results should be interpreted in conjunction with this clinical information and any physical signs/symptoms of rejection/toxicity. Testing performed by Liquid Chromatography-Tandem Mass Spectrometry (LC-MS/MS). This test was developed and its performance characteristics determined by [facility] in a manner consistent with CLIA requirements. This test has not been cleared or approved by the U.S. Food and Drug Administration. Blood 10/25/2023 8:40 AM CDT 10/26/2023 11:11 AM CDT Lencho Mera M.D. LAB BLOOD NON ADD-ON Performing Organization Address City/[facility] Co de Phone Number [facility] [address] [place] [address] [facility] [address] [place] [address] [place] [address] * (ABNORMAL) EXT Albumin, Random, Urine (10/25/2023 [...] 10/28/2023 at 04:49 PM. Ordering Provider External M.DChaim LAB URIN E ORDERABLES SCANNED REPORT * [...] 6:45 AM CDT 03/24/2023 7:08 AM CDT Vik Marie APRN.N.P., D.N.P. LAB BLOOD ADD-ON [facility] [address] [place] [address], [place] DTL [facility] [address] [place] [address] from Last 3 Months or Most Recently Relevant to Health Maintenance Additional Health Concerns Infection Onset Date Last Indicated Protective Environment 01/11/2023 3 Advance Directives For more information, please contact: [phone] Documents on File Type Date Recorded Patient Digital Advertising Analyst Expl anation Advance Directives 05/31/2016 12:00 AM Vinita cevallos document. See document viewer. * Full Code (Latest Code Status on File) Date Activated Date Inactivated Comments 03/30/2023 3:07 AM 03/30/2023 4:27 PM Question Answer Comments Full Code: Discussed Care Teams Lumber Carrier Relationship Specialty Start Date End Date Elsewhere, Pcp PCP - General Chili Pepper Grinder 05/29/19 [facility] [address] [place], [place] [address] Laboratory Medicine 04/07/20
--- OUTSIDE RECORDS SUMMARY | 2023-12-22 09:54 | XMS_ITS | Encounter Summary ---
Author Organization [facility] Address [address] [place] [address] Care Team Providers Care Physical Security Engineer Name Role Phone Elsewhere, Pcp Primary Care Provider Unavailabl e Reason for Visit * Reason Comments Med Refill Encounter Details Date Type Department Care Team ([facility] st Contact Info) Description 11/28/2023 [facility] in [place], [place] [address] [place] [phone] Julieth Webster R.N., C.C.T.C. [address] [place] [phone] Med Refill Social History Tobacco Use Types [...] relatives? Three times a week 02/11/2020 Attends Evangelical Services Not on file 02/10 Active Member [...] Answer Date Recorded PHQ-2 Score 0 05/25/2019 [facility] - Occupational Stress Questionnaire Answer Date [...] Sex Assigned at Male 05/08/2018 12:48 PM FIXED WING AIRCRAFT CREW CHIEF Gender Identity Male 05/08/2018 12:48 PM FIXED WING AIRCRAFT CREW CHIEF Sexual Orientation Straight 05/08/2018 12 :48 PM FIXED WING AIRCRAFT CREW CHIEF documented as of this encounter Plan of Treatment Not on file documented as of this encounter Visit Diagnoses Diagnosis Transplant Renal (HCC)- Primary documented in this encounter Additional Health Concerns Infection Onset Date Last Indicated Resolved Time Protective Environment 01/11/2023 01/11/2023 Assessment Noted Time PHQ-9 Depression Total Score: 0 05/25/20 19 11:12 AM FIXED WING AIRCRAFT CREW CHIEF documented as of this encounter Care Teams Physical Security Engineer Relationship Specialty Start Date End Date Elsewhere, Pcp PCP - General Store Stocker 05/29/19 [facility] [address] [place], [place] [address] Laboratory Medicine 04/07/20 documented as of this encounter
--- OUTSIDE RECORDS SUMMARY | 2023-12-22 09:54 | XMS_ITS | Clinical Summary ---
Author Organization [facility] Address [address] [place] [address] Care Team Providers Care Associate School Psychologist Name Role Phone Elsewhere, Pcp Primary Care Provider Unavailabl e Source Comments Patient records contain information from all sites at [facility]. For routine questions regarding patient records, call [phone] during business hours, M-F 8:00 AM - 5:00 PM Central Time. Record requests for emergency care only can be directed to [phone] at any time.[facility] Allergies Active Allergy Reactions Criticality Noted Date Comments Jay Inhibitors Cough 06/05/2013 Believed to have caused cough per [place] records Atomoxetine Other (see comments) 05/29/2004 Codeine [...] Refill Division of Nephrology and Hypertension in [place], [place] [address] [place] [address] Mayank Recio M.D. Med Refill 11/28/2023 [facility] in [place], [place] [address] [place] [address] Julieth Webster R.N., C.C.T.C. Transplant Renal (HCC) (Primary Dx) 11/28/2023 [facility] in [place], [place] [address] [place] [address] Julieth Webster R.N., C.C.T.C. Med Refill 10/25/2023 Orders [facility] in [place], [place] [address] [place] [address] External, Ordering Kumar Ho 10/25/2023 Orders Only Issac delacruz [facility] for Transplantation and Clinical [facility] in [place], [place] [address] [place] [address] External, Ordering ProviderKumar from Last 3 Months Immunizations Name Administration [...] relatives? Three times a week 02/11/2020 Attends Yarsanism Services Not on file 02/10 Active Member [...] Answer Date Recorded PHQ-2 Score 0 05/25/2019 [facility] [place] of Occupat ional Health - Occupational Stress [...] Sex Assigned at Male 05/08/2018 12:48 PM NAPHTHOL SOAPING MACHINE OPERATOR Gender Identity Male 05/08/2018 12:48 PM NAPHTHOL SOAPING MACHINE OPERATOR Sexual Orientation Straight 05/08/2018 12 :48 PM NAPHTHOL SOAPING MACHINE OPERATOR Last Filed Vital Signs Vital Sign Reading Time Taken Comments Blood Pressure 136/84 06/27/2023 11:15 AM NAPHTHOL SOAPING MACHINE OPERATOR Pulse 97 06/27/2023 11:15 AM NAPHTHOL SOAPING MACHINE OPERATOR Temperature 36.8 ??C (98.2 ??F) 03/30/2023 8:34 [...] - Td or Tdap) 05/01/2022 05/01/2012, 12/14/2006 Fall Risk Screen (Annual) 06/13/2023 Influenza Vaccine (#1) 2024 6, 04/22/2014, 04/20/2013, Additional history exists Lipid (Cholesterol) Screening 03/24/2024 03/24/2023, 05/15/2020, 05/28/2019, Additional history exists Office Visit for Blood Pressure Check / Re-check 03/24/2024 03/24/2023 Creatinine Level (Kidney Function Test) 10/24/2024 10/25/2023, 08/08/2023, 03/30/2023, Additional history exists Potassium Level 10/24/2024 10/25/2023, 07/15, 03/30/2023, Additional history exists Sodium Level 10/24/2024 10/25/2023, 07/15, 03/30/2023, Additional history exists Fasting Glucose for Diabetes Screening 10/24/2026 10/25/2023, 08/08/2023, 03/30/2023, Additional history exists Hepatitis C Screening Completed 03/11/2005 HPV Vaccines Aged Out No longer eligi ble based on patient's age to complete this topic Medical Devices Implanted Type Area Appian Bpm Developer Device Identifier Shelf Expiration Date Model / Serial / Lot Premier 4.0 X 12 - Hollins [id number] Implanted:Qty: 1 on 04/04/2015 Cardiac Stent HeyBubble Description:Device Manufactu rer - [employer]. Device Status Text - [id number]. Procedures Procedure Name Priority Date/Time Associated Diagnosis [...] Source result document attached to Order Number [id number] ([id number]) dated 10/25/2023. External results verified in Extract [...] External Kumar LAB BLOO D NON ADD-ON Performing Organization Address City/[facility] Co de Phone Number SCANNED REPORT * Tacrolimus, Trough (10/25/2023 8:40 AM CDT) Tacrolimus, Trough 5.6 5.0-15.0 (Trough) ng/mL 10/26/2023 2:38 PM CDT [facility] Comment: ----ADDITIONAL INFORMATION---- Target steady-state trough concentrations vary depending on the type of transplant, concomitant immunosuppression, clinical/institutional protocols, and time post-transplant. Results should be interpreted in conjunction with this clinical information and any physical signs/symptoms of rejection/toxicity. Testing performed by Liquid Chromatography-Tandem Mass Spectrometry (LC-MS/MS). This test was developed and its performance characteristics determined by [facility] in a manner consistent with CLIA requirements. This test has not been cleared or approved by the U.S. Food and Drug Administration. Blood 10/25/2023 8:40 AM CDT 10/26/2023 11:11 AM CDT Lencho Mera M.D. LAB BLOOD NON ADD-ON Performing Organization Address City/[facility] Co de Phone Number [facility] [address] [place] [address] [facility] [address] [place] [address] [place] [address] * (ABNORMAL) EXT Albumin, Random, Urine (10/25/2023 [...] 10/28/2023 at 04:49 PM. Ordering Provider External MMiller LAB URIN E ORDERABLES SCANNED REPORT * [...] Roberts APRN, C.N.P., D.N.P. LAB BLOOD ADD-ON [facility] [address] [place] [address], [place] DTL [facility] [address] [place] [address] from Last 3 Months or Most Recently Relevant to Health Maintenance Additional Health Concerns Infection Onset Date Last Indicated Protective Environment 01/11/2023 3 Advance Directives For more information, please contact: [phone] Documents on File Type Date Recorded Patient Seed District Sales Manager Expl anation Advance Directives 05/31/2016 12:00 AM Vinita cevallos document. See document viewer. * Full Code (Latest Code Status on File) Date Activated Date Inactivated Comments 03/30/2023 3:07 AM 03/30/2023 4:27 PM Question Answer Comments Full Code: Discussed Care Teams Associate School Psychologist Relationship Specialty Start Date End Date Elsewhere, Pcp PCP - General Filter Screen Cleaner 05/29/19 [facility] [address] [place], [place] [address] Laboratory Medicine 04/07/20
--- OUTSIDE RECORDS SUMMARY | 2023-12-22 09:55 | XMS_ITS ---
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 Transplant External Managing Daycare Manager [phone] [email or web address] Post-Transplant Pre-Transplant Transplanted: 03/04/1998 Referred: 12/13/1991 Discharged: 03/10/1998 Center waitlisted: 5
--- OUTSIDE RECORDS SUMMARY | 2023-12-22 09:55 | XMS_ITS | Clinical Summary ---
Author Organization [facility] Address [place], [place] [address] Care Team Providers Care Drapery Supervisor Name Role Phone Alonso Coreas MD Primary Care Provider [phone] Allergies Active Allergy Reactions Criticality Noted Date Comments Jay Inhibitors Cough 06/05/2013 Believed to have caused cough per [place] records Atomoxetine Dizziness 05/29/2004 Codeine Other - [...] mixed anxiety and depre ssed mood 02/10/2010 Encounters Date Type Department Care Team Description 12/22/2023 9:00 AM CDT Office Visit [facility] & [address] [address] Kee Pretty MD Arrived from Last 3 Months Immunizations Name Administration Dates Next Due Tdap [...] 165.1 cm (5' 5) 05/23/2015 11:00 AM CHIP WASHER Body Mass Index 34.28 05/23/2015 11:00 AM CHIP WASHER Plan of Treatment Upcoming Encounters Date Type Department Care Team (Late st Contact Info) Description 01/12/2024 3:40 PM CDT Office Visit [facility] [place] [address] [place] [phone] Armaan Newberry MD [address] [place] [address] Health Maintenance Due Date Last Done Comments [...] 65+ 02/12/2024 Tdap Completed 05/01/2012 Care Teams Drapery Supervisor Relationship Specialty Start Date End Date Alonso Coreas MD [address] [place] [address] PCP - General Internal Medicine 10/28/22
[2023-12-22 10:21] LABS: Chloride* 107 mmol/L (96-114); Potassium* 4.4 mmol/L (3.6-5.1); Sodium* 139 mmol/L (135-149)
[2023-12-22 10:24] LABS: Anion Gap 8 mEq/L (7-15); Blood Urea Nitrogen* 30 mg/dL (7-30); Carbon Dioxide* 24 mmol/L (20-32); Creatinine* 1.3 mg/dL (0.5-1.5); Estimated Glomerular Filt Rate 58 ml/min; Glucose* 115 mg/dL (60-115)
[2023-12-22 10:25] LABS: Calcium* 10.2 mg/dL (8.4-10.6)
== END 2023-12-22 09:50 | disposition home or self-care (01) ==
PROVIDERS: PCP Internal Medicine; Visit Provider Internal Medicine Nephrology
DX: Z94.0 Kidney transplant status (principal)
CPT/HCPCS: 36415; 80048

== ENCOUNTER 2024-02-24 12:32 | Outpatient (CLI) | payer MEDICARE, BC, SELFPAY ==
--- OUTSIDE RECORDS SUMMARY | 2024-02-24 12:36 | XMS_ITS ---
Author Organization [facility] Address [address] [place] [address] Care Team Providers Care Bottler Name Role Phone Unavailable Unavailable Unavailable Surgery Details Not on file Complications Check Surgery Details section. Procedure Estimated Blood Loss Check Surgery Details section. Procedure Findings Check Surgery Details section. Procedure Specimens Taken Check Surgery Details section.
--- OUTSIDE RECORDS SUMMARY | 2024-02-24 12:36 | XMS_ITS | Encounter Summary ---
Author Organization [facility] Address [address] [place] [address] Care Team Providers Care Collar Starcher Name Role Phone Elsewhere, Pcp Primary Care Provider Unavailabl e Reason for Visit * Reason Comments Med Refill Encounter Details Date Type Department Care Team ([facility] st Contact Info) Description 12/12/2023 Refill Division of Nephrology and Hypertension in [place], [place] [address] [place] [phone] Mayank Recio M.D. [address] [place] [phone] Med Refill Social History Tobacco Use Types [...] relatives? Three times a week 02/11/2020 Attends Adventism Services Not on file 02/10 Active Member [...] Answer Date Recorded PHQ-2 Score 0 05/25/2019 [facility] - Occupational Stress Questionnaire Answer [...] your living situation today? [facility] 04/05/2023 Education Answer Date Recorded What is the highest level of school you have completed or the highest degree you have received? Bachelor's degree (e.g., BA, AB, BS) 05/25/2019 Sex and Gender Information Value Date Recorded Sex Assigned at Male 05/08/2018 12:48 PM CUSTOM DESIGNER Gender Identity Male 05/08/2018 12:48 PM CUSTOM DESIGNER Sexual Orientation Straight 05/08/2018 12 :48 PM CUSTOM DESIGNER documented as of this encounter Plan of Treatment Upcoming Encounters Date Type Department Care Team (Latest Contact Info) Description 04/12/2024 6:50 AM CDT Appointment Department of Laboratory Medicine and Pathology, [place], [place] [address] [place] [address] Kayla Roberts APRN, C.N.P., D.N.P. [address] [place] [phone] 04/12/2024 7:00 AM CDT Appointment Department of Laboratory Medicine and Pathology, [place], [place] [address] [place] [address] Kayla Roberts APRN, C.N.P., D.N.P. [address] [place] [phone] 04/12/2024 7:30 AM CDT Appointment Department of Laboratory Medicine and Pathology, [place], [place] [address] [place] [address] Kayla Roberts APRN, C.N.P., D.N.P. [address] [place] [phone] 04/12/2024 2:30 PM CDT [facility] in [place], [place] [address] [place] [phone] Kayla Roberts APRN, C.N.P., D.N.P. [address] [place] [phone] 05/08/2024 8:20 AM CUSTOM DESIGNER Comprehensive Visit Department of Dermatology in [place], [place] [address] [place] [address] Cathryn Win APRN, C.N.P., M.S.N. [address] [place] [address] documented as of this encounter Visit Diagnoses Diagnosis Transplant Renal (HCC) documented in this encounter Additional Health Concerns Infection Onset Date Last Indicated Resolved Time Protective Environment 01/11/2023 01/11/2023 Assessment Noted Time PHQ-9 Depression Total Score: 0 05/25/20 11:12 AM CUSTOM DESIGNER documented as of this encounter Care Teams Collar Starcher Relationship Specialty Start Date End Date Elsewhere, Pcp PCP - General Ladies' Hat Trimmer 05/29/19 [facility] [address] [place], [place] [address] Laboratory Medicine 04/07/20 documented as of this encounter
--- OUTSIDE RECORDS SUMMARY | 2024-02-24 12:36 | XMS_ITS | Encounter Summary ---
Author Organization [facility] Address [address] [place] [address] Care Team Providers Care Product Representative Name Role Phone Elsewhere, Pcp Primary Care Provider Unavailabl e Encounter Details Date Type Department Care Team ([facility] st Contact Info) Description 12/22/2023 Orders Only Issac Guidry [place] for Transplantation and Clinical Regeneration in [place], [place] [address] [place] [address] External, Ordering Provider, Kumar Social History Tobacco [...] relatives? Three times a week 02/11/2020 Attends Congregation Services Not on file 02/10 Active Member [...] Answer Date Recorded PHQ-2 Score 0 05/25/2019 [facility] of Occupat ional Health - Occupational Stress [...] Sex Assigned at Male 05/08/2018 12:48 PM RAILCAR MECHANIC Gender Identity Male 05/08/2018 12:48 PM RAILCAR MECHANIC Sexual Orientation Straight 05/08/2018 12 :48 PM RAILCAR MECHANIC documented as of this encounter Plan of Treatment Upcoming Encounters Date Type Department Care Team (Latest Contact Info) Description 04/12/2024 6:50 AM CDT Appointment Department of Laboratory Medicine and Pathology, [facility] in [place], [place] [address] [place] [phone] Kayla Roberts APRN C.N.P., D.N.P. [address] [place] [phone] 04/12/2024 7:00 AM CDT Appointment Department of Laboratory Medicine and Pathology, [facility] in [place], [place] [address] [place] [phone] Kayla Roberts APRN, C.N.P., D.N.P. [address] [place] [phone] 04/12/2024 7:30 AM CDT Appointment Department of Laboratory Medicine and Pathology, [facility] in [place], [place] [address] [place] [phone] Kayla Roberts APRN, C.N.P., D.N.P. [address] [place] [phone] 04/12/2024 2:30 PM CDT [facility] in [place], [place] [address] [place] [phone] Kayla Roberts APRN, C.N.P., D.N.P. [address] [place] [phone] 05/08/2024 8:20 AM RAILCAR MECHANIC Comprehensive Visit Department of Dermatology in [place], [place] [address] [place] [phone] Cathryn Win APRN, C.N.P., M.S.N. [address] [place] [address] documented as of this encounter Procedures Procedure Name Priority Date/Time Associated Diagnosis Comments EXTP BASIC METABOLIC PANEL, BLOOD Routine 12/22/2023 10:02 AM CDT documented in this encounter Results * EXT Basic Metabolic Panel, Blood (12/22/2023 10:02 AM CDT) EXT Sodium 139 135 - 149 mmol/L SCANNED REPORT EXT Potassium 4.4 3.6 - 5.1 mmol/L SCANNED REPORT EXT Chloride 107 96 - 114 mmol/L SCANNED REPORT EXT CO2 24 20 - 32 mmol/L SCANNED REPORT EXT BUN (Blood Urea Nitrogen) 30 7 - 30 mg/dL SCANNED REPORT EXT Creatinine 1.3 0.5 - 1.5 mg/dL SCANNED REPORT EXT Estimated GFR (eGFR) 58 ml/min SCANNED REPORT EXT Calcium, Total 10.2 8.4 - 10.6 mg/dL SCANNED REPORT EXT Glucose 115 60 - 115 mg/dL SCANNED REPORT 12/22/2023 10:0 2 AM CDT Narrative SCANNED REPORT - 12/23/2023 10:28 AM CDT External results verified in Extract by Tash Casillas on 12/23/2023 at 10:26 AM. Ordering Provider External M.[facility] BLOO D NON ADD-ON SCANNED REPORT documented in this encounter Visit Diagnoses Not on filedocumented in this encounter Additional Health Concerns Infection Onset Date Last Indicated Resolved Time Protective Environment 01/11/2023 01/11/2023 Assessment Noted Time PHQ-9 Depression Total Score: 0 05/25/20 19 11:12 AM RAILCAR MECHANIC documented as of this encounter Care Teams Product Representative Relationship Specialty Start Date End Date Elsewhere, Pcp PCP - General Heel Trimmer 05/29/19 [facility] [address] [place], [place] [address] Laboratory Medicine 04/07/20 documented as of this encounter
--- OUTSIDE RECORDS SUMMARY | 2024-02-24 12:36 | XMS_ITS | Encounter Summary ---
Author Organization [facility] Address [address] [place] [address] Care Team Providers Care Mobile Service Rv Technician Name Role Phone Elsewhere, Pcp Primary Care Provider Unavailabl e Encounter Details Date Type Department Care Team ([facility] st Contact Info) Description 11/28/2023 Orders Only Issac Guidry [place] [facility] Transplantation and Clinical Regeneration in [place], [place] [address] [place] [phone] Julieth Webster R.N., C.C.T.C. [address] [place] [phone] Transplant Renal (HCC) (Primary Dx) Social History [...] relatives? Three times a week 02/11/2020 Attends Episcopal Services Not on file 02/10 Active Member [...] Score 0 05/25/2019 [facility] - Occupational Stress Questionnaire Answer Date [...] Sex Assigned at Male 05/08/2018 12:48 PM LACER AND TIER Gender Identity Male 05/08/2018 12:48 PM LACER AND TIER Sexual Orientation Straight 05/08/2018 12 :48 PM LACER AND TIER documented as of this encounter Plan of Treatment Upcoming Encounters Date Type Department Care Team (Latest Contact Info) Description 04/12/2024 6:50 AM CDT Appointment Department of Laboratory Medicine and Pathology, [place], [place] [address] [place] [phone] Kayla Roberts APRN C.N.P., D.N.P. [address] [place] [phone] 04/12/2024 7:00 AM CDT Appointment Department of Laboratory Medicine and Pathology, [place], [place] [address] [place] [address] Kayla Roberts APRN, C.N.P., D.N.P. [address] [place] [phone] 04/12/2024 7:30 AM CDT Appointment Department of Laboratory Medicine and Pathology, [place], [place] [address] [place] [phone] Kayla Roberts APRN, C.N.P., D.N.P. [address] [place] [phone] 04/12/2024 2:30 PM CDT [facility] in [place], [place] [address] [place] [phone] Kayla Roberts APRN, C.N.P., D.N.P. [address] [place] [phone] 05/08/2024 8:20 AM LACER AND TIER Comprehensive Visit Department of Dermatology in [place], [place] [address] [place] [phone] Cathryn Win APRN, C.N.P., M.S.N. [address] [place] [phone] documented as of this encounter Visit Diagnoses Diagnosis Transplant Renal (HCC)- Primary documented in this encounter Additional Health Concerns Infection Onset Date Last Indicated Resolved Time Protective Environment 01/11/2023 01/11/2023 Assessment Noted Time PHQ-9 Depression Total Score: 0 05/25/20 11:12 AM LACER AND TIER documented as of this encounter Care Teams Mobile Service Rv Technician Relationship Specialty Start Date End Date Elsewhere, Pcp PCP - General Food Beverage Server 05/29/19 [facility] [address] [place], [place] [address] Laboratory Medicine 04/07/20 documented as of this encounter
--- OUTSIDE RECORDS SUMMARY | 2024-02-24 12:36 | XMS_ITS | Encounter Summary ---
Author Organization [facility] Address [address] [place] [address] Care Team Providers Care Pressure Supervisor Name Role Phone Elsewhere, Pcp Primary Care Provider Unavailabl e Reason for Visit * Reason Comments Med Refill Encounter Details Date Type Department Care Team ([facility] st Contact Info) Description 01/23/2024 [facility] in [place], [place] [address] [place] [phone] Kayla Roberts, BETO, C.N.P., D.N.P. [address] [place] [phone] Med Refill Social History Tobacco Use Types [...] relatives? Three times a week 02/11/2020 Attends Scientologist Services Not on file 02/10 Active Member [...] Answer Date Recorded PHQ-2 Score 0 05/25/2019 [facility] of Occupat ional [facility] - Occupational Stress Questionnaire Answer Date [...] Sex Assigned at Male 05/08/2018 12:48 PM STONE OPERATOR Gender Identity Male 05/08/2018 12:48 PM STONE OPERATOR Sexual Orientation Straight 05/08/2018 12 :48 PM STONE OPERATOR documented as of this encounter Plan of Treatment Upcoming Encounters Date Type Department Care Team (Latest Contact Info) Description 04/12/2024 6:50 AM CDT Appointment Department of Laboratory Medicine and Pathology, [place], [place] [address] [place] [address] Kayla Roberts APRN, C.N.P., D.N.P. [address] [place] [phone] 04/12/2024 7:00 AM CDT Appointment Department of Laboratory Medicine and Pathology, [facility] in [place], [place] [address] [place] [phone] Kayla Roberts APRN, C.N.P., D.N.P. [address] [place] [phone] 04/12/2024 7:30 AM CDT Appointment Department of Laboratory Medicine and Pathology, [place], [place] [address] [place] [address] Kayla Roberts APRN, C.N.P., D.N.P. [address] [place] [phone] 04/12/2024 2:30 PM CDT [facility] in [place], [place] [address] [place] [address] Kayla Roberts APRN, C.N.P., D.N.P. [address] [place] [phone] 05/08/2024 8:20 AM STONE OPERATOR Comprehensive Visit Department of Dermatology in [place], [place] [address] [place] [address] Cathryn Win APRN, C.N.P., M.S.N. [address] [place] [phone] documented as of this encounter Visit Diagnoses Diagnosis Transplant Renal (HCC) documented in this encounter Additional Health Concerns Infection Onset Date Last Indicated Resolved Time Protective Environment 01/11/2023 01/11/2023 Assessment Noted Time PHQ-9 Depression Total Score: 0 05/25/20 11:12 AM STONE OPERATOR documented as of this encounter Care Teams Pressure Supervisor Relationship Specialty Start Date End Date Elsewhere, Pcp PCP - General Director Fixed Income 05/29/19 [facility] [address] [place], [place] [address] Laboratory Medicine 04/07/20 documented as of this encounter
--- OUTSIDE RECORDS SUMMARY | 2024-02-24 12:36 | XMS_ITS | Encounter Summary ---
Author Organization [facility] Address [address] [place] [address] Care Team Providers Care Senior Technical Architect Name Role Phone Elsewhere, Pcp Primary Care Provider Unavailabl e Reason for Referral * Outpatient (Routine) - Authorized Specialty Diagnoses / Procedures Referred By Contac t Referred To Contact Diagnoses Transplant Renal (HCC) Procedures Short renal clearance: Iothalamate/Iohexol (Renal Studies Unit) Kayla Roberts APRN, C.N.P., D.N.P. [address] [place] [phone] [facility] Referral ID Status Reason Start Date Expiration Date V isits Requested Visits Authorized [id number] Authorized 02/15/2024 02/14/2025 1 1 * Outpatient (Routine) - Authorized Specialty Diagnoses / Procedures Referred By Contac t Referred To Contact Dermatology Diagnoses Transplant Renal (HCC) Kayla Roberts APRN, C.N.P., D.N.P. [address] [place] [phone] [facility] Referral ID Status Reason Start Date Expiration Date V isits Requested Visits Authorized [id number] Authorized 02/15/2024 08/16/2025 1 1 Reason for Visit * Reason Onset Date Comments Annual Exam 02/14/2024 Encounter Details Date Type Department Care Team (Latest Contact Info) Description 02/14/2024 Clinical Communication Issac Jessica [facility] for Transplantation and Clinical Regeneration in [place], [place] [address] [place] [address] Kayla Roberts APRN, C.N.Sumeet., Griffin.N.P. [address] [place] [address] Annual Exam Social History Tobacco Use Types Packs/Day Years [...] relatives? Three times a week 02/11/2020 Attends Tenriism Services Not on file 02/10 Active Member [...] PHQ-2 Score 0 05/25/2019 [facility] of Occupat ional Health - Occupational Stress [...] your living situation today? I have a [facility] place to live 04/05/2023 Education Answer Date Recorded What is the highest level of school you have completed or the highest degree you have received? Bachelor's degree (e.g., BA, AB, BS) 05/25/2019 Sex and Gender Information Value Date Recorded Sex Assigned at Male 05/08/2018 12:48 PM BATTERY TESTER FIELD Gender Identity Male 05/08/2018 12:48 PM BATTERY TESTER FIELD Sexual Orientation Straight 05/08/2018 12 :48 PM BATTERY TESTER FIELD documented as of this encounter Plan of Treatment Upcoming Encounters Date Type Department Care Team (Latest Contact Info) Description 04/12/2024 6:50 AM CDT Appointment Department of Laboratory Medicine and Pathology, [facility], in [place], [place] [address] [place] [address] Kayla Roberts APRN, C.N.P., D.N.P. [address] [place] [phone] 04/12/2024 7:00 AM CDT Appointment Department of Laboratory Medicine and Pathology, [facility] in [place], [place] [address] [place] [address] Kayla Roberts APRN, C.N.P., D.N.P. [address] [place] [phone] 04/12/2024 7:30 AM CDT Appointment Department of Laboratory Medicine and Pathology, [facility] in [place], [place] [address] [place] [phone] Kayla Roberts APRN, C.N.Milady, D.N.P. [address] [place] [phone] 04/12/2024 2:30 PM CDT [facility] in [place], [place] [address] [place] [phone] Kayla Roberts APRN, C.N.P., D.N.P. [address] [place] [phone] 05/08/2024 8:20 AM BATTERY TESTER FIELD Comprehensive Visit Department of Dermatology in [place], [place] [address] [place] [phone] Cathryn Win APRN, C.N.P., M.S.N. [address] [place] [phone] Scheduled Orders Name Type Priority Associated Diagnoses Orde r Schedule CBC with Differential, Blood Lab Routine Transplant Renal (HCC) Expected: 04/12/2024 (Approximate), Expires: 05/16/2025 Prothrombin Time (PT) Lab Routine Transplant Renal ([facility]) Expected: 04/12/2024 (Approximate), Expires: 05/16/2025 APTT (Activated Partial Thromboplastin Time) Lab Routine Transplant Renal ([facility]) Expected: 04/12/2024 (Approximate), Expires: 05/16/2025 Comprehensive Metabolic Panel Lab Routine Transplant Renal ([facility]) Expected: 04/12/2024 (Approximate), Expires: 05/16/2025 Phosphorus Inorganic Lab Routine Transplant Renal ([facility]) Expected: 04/12/2024 (Approximate), Expires: 05/16/2025 Magnesium Lab Routine Transplant Renal ([facility]) Expected: 04/12/2024 (Approximate), Expires: 05/16/2025 Lipid Panel Lab Routine Transplant Renal ([facility]) Expected: 04/12/2024 (Approximate), Expires: 05/16/2025 Hemoglobin A1c Lab Routine Transplant Renal ([facility]) Expected: 04/12/2024 (Approximate), Expires: 05/16/2025 Short renal clearance: Iothalamate/Iohexol (Renal Studies Unit) Procedures Routine Transplant Renal ([facility]) Expected: 04/12/2024 (Approximate), Expires: 05/16/2025 Heath/Kid 5cc Storage, Blood Lab Routine Transplant Renal ([facility]) Expected: 04/12/2024 (Approximate), Expires: 05/16/2025 HLA Class I SAB Antibody Screen Lab HLA Routine Transplant Renal ([facility]) Expected: 04/12/2024 (Approximate), Expires: 05/16/2025 HLA Class II SAB Antibody Screen Lab HLA Routine Transplant Renal ([facility]) Expected: 04/12/2024 (Approximate), Expires: 05/16/2025 Tacrolimus, Trough Lab Routine Transplant Renal ([facility]) Expected: 04/12/2024 (Approximate), Expires: 05/16/2025 Mycophenolic Acid Lab Routine Transplant Renal ([facility]) Expected: 04/12/2024 (Approximate), Expires: 05/16/2025 25-Hydroxyvitamin D2 and D3 Lab Routine Transplant Renal ([facility]) Expected: 04/12/2024 (Approximate), Expires: 05/16/2025 Parathyroid Hormone (PTH) Lab Routine Transplant Renal ([facility]) Expected: 04/12/2024 (Approximate), Expires: 05/16/2025 Calcium, Total Lab Routine Transplant Renal ([facility]) Expected: 04/12/2024 (Approximate), Expires: 05/16/2025 BKV DNA Detect/Quant Microbiology Routine Transplant Renal ([facility]) Expected: 04/12/2024 (Approximate), Expires: 05/16/2025 Heath/Kid 5cc Storage, Blood Lab Routine Transplant Renal ([facility]) Expected: 04/12/2024 (Approximate), Expires: 05/16/2025 Heath/Kid 10cc Storage, Blood Lab Routine Transplant Renal ([facility]) Expected: 04/12/2024 (Approximate), Expires: 05/16/2025 Urinalysis, with Microscopic: Urine, Midstream Lab Routine Transplant Renal ([facility]) Expected: 04/12/2024 (Approximate), Expires: 05/16/2025 Bacterial Culture, Aerobic + Susceptibility, Urine Microbiology Routine Transplant Renal ([facility]) Expected: 04/12/2024 (Approximate), Expires: 05/16/2025 Protein, Total, 24 hour, Urine Lab Routine Transplant Renal ([facility]) Expected: 04/12/2024 (Approximate), Expires: 02/14/2025 Albumin, 24 hour Collection, Urine Lab Routine Transplant Renal ([facility]) Expected: 04/12/2024 (Approximate), Expires: 02/14/2025 PSA (Prostate-Specific Antigen) Screen Lab Routine Transplant Renal ([facility]) Expected: 04/12/2024 (Approximate), Expires: 05/16/2025 Scheduled Referrals Name Type Priority Associated Diagnoses Order Schedule Dermatology - Transplant consult (clinic) Outpatient Referral Routine Transplant Renal ([facility]) Expected: 04/12/2024 (Approximate), Expires: 05/16/2025 documented as of this encounter Visit Diagnoses Diagnosis Transplant Renal (HCC)- Primary documented in this encounter Additional Health Concerns Infection Onset Date Last Indicated Resolved Time Protective Environment 01/11/2023 01/11/2023 Assessment Noted Time PHQ-9 Depression Total Score: 0 05/25/20 19 11:12 AM BATTERY TESTER FIELD documented as of this encounter Care Teams Senior Technical Architect Relationship Specialty Start Date End Date Elsewhere, Pcp PCP - General Automotive Electrician 05/29/19 [facility] [address] [place], [place] [address] Laboratory Medicine 04/07/20 documented as of this encounter
--- OUTSIDE RECORDS SUMMARY | 2024-02-24 12:36 | XMS_ITS | Clinical Summary ---
Author Organization [facility] Address [address] [place] [address] Care Team Providers Care Spring Production Supervisor Name Role Phone Elsewhere, Pcp Primary Care Provider Unavailabl e Source Comments Patient records contain information from all sites at [facility]. For routine questions regarding patient records, call [phone] during business hours, M-F 8:00 AM - 5:00 PM Central Time. Record requests for emergency care only can be directed to [phone] at any time.[facility] Allergies Active Allergy Reactions Criticality Noted Date Comments Jay Inhibitors Cough 06/05/2013 Believed to have caused cough per [place] records Atomoxetine Other (see comments) 05/29/2004 Codeine [...] tablet by mouth daily. 05/22/2015 Active tacrolimus (Prograf) 0.5 mg capsuleIndications: Transplant Renal (HCC) Take 1 capsule (0.5 mg total) by mouth every morning. Take along with 1 mg caps for total dose 2.5 mg in the Am and 2 mg in the PM 90 capsule 3 01/20/2023 Active mycophenolate (CELLCEPT) 250 mg capsuleIndications: Transplant Renal (HCC),High Risk Medication TAKE THREE CAPSULES [...] 3 05/09/2023 Active losartan (COZAAR) 25 mg tabletIndications:T ransplant Renal (HCC) Take 1 tablet (25 mg total) by mouth at bedtime. 90 tablet 3 11/29/2023 Active metoprolol tartrate (Lopressor) 25 mg tabletIndications:T ransplant Renal (HCC) Take 1.5 tablets by mouth 2 times a day 270 tablet 1 12/13/2023 Active tacrolimus (Prograf) 1 mg capsuleIndications: Transplant Renal (HCC) Take 2 capsules by mouth 2 times a day. Take along with 0.5 mg caps for total dose 2.5 mg in the AM and 2 mg in the PM 360 capsule 3 01/24/2024 Active Active Problems Problem Noted Date Diagnosed Date Parotitis 03/30/2023 Otitis Externa Acute Left 03/30/2023 Obesity Body Mass Index 30-39.9 Adult 05/29/2019 Hypertriglyceridemia 05/29/2019 Congestive Heart Failure Vijaya stolic Chronic Heart Failure With Preserved Ejection Fraction 06/08/2016 Flutter Atrial 09/27/2015 Atrial Fibrillation Unspecified 09/26/2015 Coronary Artery Disease With Unstable Angina Dysthymia 04/28/2009 Major Depressive Disorder Single Episode Unspeci fied 04/23/2009 Overview (11/02/2016): Depression Major NOS Peripheral Vascular Disease 04/23/2009 Overview (11/02/2016): Claudication Immunodeficiency 07/27/2007 Overview (11/02/2016): Immunosuppressed State NOS 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 Annual Exam 01/23/2024 Refill [facility], [place], [facility] Transplantation and Clinical Regeneration in [place], [place] [address] [place] [address] Kayla Roberts APRN, C.N.P., D.N.P. Med Refill 12/22/2023 Orders Only [facility], [place], [facility] Transplantation and Clinical Regeneration in [place], [place] [address] [place] [address] External, Ordering Kumar Ho 12/12/2023 Refill Division of Nephrology and Hypertension in [place], [place] [address] [place] [phone] Mayank Recio M.D. Med Refill 11/28/2023 Orders Only [facility], [place], [facility] Transplantation and Clinical Regeneration in [place], [place] [address] [place] [address] Julieth Webster R.N., C.C.T.C. Transplant Renal (HCC) (Primary Dx) 11/28/2023 Refill Issac Jessica [facility] for Transplantation and Clinical Regeneration in [place], [place] [address] [place] [address] Julieth Webster R.N., C.C.T.C. Med Refill from Last 3 Months Immunizations Name Administration Dates Next Due Influenza Split 03/16/2011,03/27/2009,03/24/2001 Influenza, Seasonal, Injectable 05/17/2008,05/28,03/24/2001 Influenza, Unspecified 03/16/2011 PCV13 04/22/2014 PPSV23 05/01/2012,03/24/2001 SARS-COV-2 (COVID-19) - LUDMILA WHITLOCK (June&J)(Discontinued) 08/28/2020 Td, (Adult) Unspecified 12/14/2006 Tdap 05/01/2012 influenza trivalent vaccine (6 months and older)(PF) 04/20/2013,05/01/2012,03/27/2009,2006 influenza vaccine quad (FLUZONE/FLUARIX) (6 months and [...] relatives? Three times a week 02/11/2020 Attends Sikhism Services Not on file 02/10 Active Member [...] Answer Date Recorded PHQ-2 Score 0 05/25/2019 [facility] - [facility]ational Stress Questionnaire Answer [...] your living situation today? I have a [facility] place to live 04/05/2023 Education Answer Date Recorded What is the highest level of school you have completed or the highest degree you have received? Bachelor's degree (e.g., BA, AB, BS) 05/25/2019 Sex and Gender Information Value Date Recorded Sex Assigned at Male 05/08/2018 12:48 PM MACHINE VENEER REPAIRER Gender Identity Male 05/08/2018 12:48 PM MACHINE VENEER REPAIRER Sexual Orientation Straight 05/08/2018 12 :48 PM MACHINE VENEER REPAIRER Last Filed Vital Signs Vital Sign Reading Time Taken Comments Blood Pressure 136/84 06/27/2023 11:15 AM MACHINE VENEER REPAIRER Pulse 97 06/27/2023 11:15 AM MACHINE VENEER REPAIRER Temperature 36.8 ??C (98.2 ??F) 03/30/2023 8:34 AM CD T Respiratory Rate 16 03/30/2023 8:34 AM CDT Oxygen Saturation 95% 03/30/2023 8:34 AM CDT Inhaled Oxygen Concentration - - Weight 90.8 kg (200 lb 2.8 oz) 03/30/2023 8:34 A M CDT Height 164.7 cm (5' 4.84) 03/24/2023 9:00 AM CD T Body Mass Index 33.47 03/24/2023 9:00 AM CDT Plan of Treatment Upcoming Encounters Date Type Department Care Team (Latest Contact Info) Description 04/12/2024 6:50 AM CDT Appointment Department of Laboratory Medicine and Pathology, [place], [place] [address] [place] [address] Kayla Roberts APRN, C.N.P., D.N.P. [address] [place] [phone] 04/12/2024 7:00 AM CDT Appointment Department of Laboratory Medicine and Pathology, [place], [place] [address] [place] [address] Kayla Roberts APRN, C.N.P., D.N.P. [address] [place] [phone] 04/12/2024 7:30 AM CDT Appointment Department of Laboratory Medicine and Pathology, [facility], in [place], [place] [address] [place] [address] Kayla Roberts APRN, C.N.P., D.N.P. [address] [place] [phone] 04/12/2024 2:30 PM CDT Office Visit Issac Jessica [facility] for Transplantation and Clinical Regeneration in [place], [place] [address] [place] [phone] Kayla Roberts APRN, C.N.P., D.N.P. [address] [place] [phone] 05/08/2024 8:20 AM MACHINE VENEER REPAIRER Comprehensive Visit Department of Dermatology in [place], [place] [address] [place] [address] Cathryn Win APRN, C.N.P., M.S.N. [address] [place] [phone] Health Maintenance Due Date Last Done Comments Depression Monitoring (PHQ-9) 1950 Meningococcal Vaccine (1 - Risk 1-dose series ) 1952 MenB Vaccine (1 of 2 - Patient Seeks Protection) 1966 Hepatitis A Vaccines (1 of 2 - Risk 2-dose series) 1969 Zoster Vaccines (1 of 2) 1969 Hepatitis B Vaccines (1 of 3 - Risk 3-dose series) 2010 Pneumococcal vaccine (65+ years) (4 of 4 [...] 03/24/2024 03/24/2023 Creatinine Level (Kidney Function Test) 12/21/2024 12/22/2023, 10/25/2023, 08/08/2023, Additional history exists Potassium Level 12/21/2024 12/22/2023, 10/11, 08/08/2023, Additional history exists Sodium Level 12/21/2024 12/22/2023, 10/11, 08/08/2023, Additional history exists Fasting Glucose for Diabetes Screening 12/21/2026 12/22/2023, 10/25/2023, 08/08/2023, Additional history exists Hepatitis C Screening Completed 03/11/2005 HPV Vaccines Aged Out No longer eligi ble based on patient's age to complete this topic Medical Devices Implanted Type Area Speech Language Therapist Device Identifier Shelf Expiration Date Model / Serial / Lot Premier 4.0 X 12 - Hollins [id number] Implanted:Qty: 1 on 04/04/2015 Cardiac Stent [employer] Scientific Description:Device Manufactu rer - [employer]. Device Status Text - [id number]. Procedures Procedure Name Priority Date/Time Associated Diagnosis Comments EXTP BASIC METABOLIC PANEL, BLOOD Routine 12/22/2023 10:02 AM CDT LIPID PANEL, S Routine 03/24/2023 [...] 12/23/2023 at 10:26 AM. Ordering Provider External M.D. LAB BLOO D NON ADD-ON SCANNED REPORT * (ABNORMAL) Lipid Panel (03/24/2023 6:45 AM CDT) Pathologist [facility] Triglycerides 156(H) mg/dL 03/24/2023 8:00 AM CDT [...] Roberts APRN, C.N.P., D.N.P. LAB BLOOD ADD-ON [facility] [address] [place] [address], [facility] [address] [place] [address] from Last 3 Months or Most Recently Relevant to Health Maintenance Additional Health Concerns Infection Onset Date Last Indicated Protective Environment 01/11/2023 3 Advance Directives For more information, please contact: [phone] Documents on File Type Date Recorded Patient Claim Specialist Expl anation Advance Directives 05/31/2016 12:00 AM Vinita cevallos document. See document viewer. * Full Code (Latest Code Status on File) Date Activated Date Inactivated Comments 03/30/2023 3:07 AM 03/30/2023 4:27 PM Question Answer Comments Full Code: Discussed Care Teams Spring Production Supervisor Relationship Specialty Start Date End Date Elsewhere, Pcp PCP - General Medicine Worker 05/29/19 [facility] [address] [place], [place] [address] Laboratory Medicine 04/07/20
--- OUTSIDE RECORDS SUMMARY | 2024-02-24 12:36 | XMS_ITS | Referral Summary ---
Author Organization [facility] Address [address] [place] [address] Care Team Providers Care Care Aid Name Role Phone Elsewhere, Pcp Primary Care Provider Unavailabl e Source Comments Patient records contain information from all sites at [facility]. For routine questions regarding patient records, call [phone] during business hours, M-F 8:00 AM - 5:00 PM Central Time. Record requests for emergency care only can be directed to [phone] at any time.[facility] Encounters Date Type Department Care Team Description 02/14/2024 Clinical Communication Issac delacruz [facility] for Transplantation and Clinical Regeneration in [place], [place] [address] [place] [address] Kayla oRberts APRN, C.N.P., D.N.P. Annual Exam 01/23/2024 [facility] [place], [place] [address] [place] [address] Kyala Roberts APRN, C.N.P., D.N.P. Med Refill 12/22/2023 Orders Only Issac Jessica [facility] Transplantation and Clinical Regeneration in [place], [place] [address] [place] [address] External, Ordering ProviderKumar 12/12/2023 Refill Division of Nephrology and Hypertension in [place], [place] [address] [place] [address] Mayank Recio M.D. Med Refill 11/28/[address] [facility] Transplantation and Clinical [facility] in [place], [place] [address] [place] [address] Julieth Webster R.N., C.C.T.C. Transplant Renal (HCC) (Primary Dx) 11/28/[address] [facility] Transplantation and Clinical Regeneration in [place], [place] [address] [place] [address] Julieth Webster R.N., C.C.T.C. Med Refill from Last 3 Months Allergies Active Allergy Reactions Criticality Noted Date Comments Jay Inhibitors Cough 06/05/2013 Believed to have caused cough per [facility] records Atomoxetine Other (see comments) 05/29/2004 Codeine [...] relatives? Three times a week 02/11/2020 Attends Anabaptist Services Not on file 02/10 Active Member [...] Answer Date Recorded PHQ-2 Score 0 05/25/2019 [facility] - Occupational [...] Sex Assigned at Male 05/08/2018 12:48 PM HAT CONE INSPECTOR Gender Identity Male 05/08/2018 12:48 PM HAT CONE INSPECTOR Sexual Orientation Straight 05/08/2018 12 :48 PM HAT CONE INSPECTOR Last Filed Vital Signs Vital Sign Reading Time Taken Comments Blood Pressure 136/84 06/27/2023 11:15 AM HAT CONE INSPECTOR Pulse 97 06/27/2023 11:15 AM HAT CONE INSPECTOR Temperature 36.8 ??C (98.2 ??F) 03/30/2023 8:34 [...] Appointment Department of Laboratory Medicine and Pathology, [place], [place] [address] [place] [address] Kayla Roberts APRN, C.N.P., D.N.P. [address] [place] [phone] 04/12/2024 7:00 AM CDT Appointment Department of Laboratory Medicine and Pathology, [place], [place] [address] [place] [address] Kayla Roberts APRN, C.N.P., D.N.P. [address] [place] [phone] 04/12/2024 7:30 AM CDT Appointment Department of Laboratory Medicine and Pathology, [facility], in [place], [place] [address] [place] [address] Kayla Roberts APRN, C.NDavina., D.N.P. [address] [place] [phone] 04/12/2024 2:30 PM CDT Office Visit Issac delacruz [facility] for Transplantation and Clinical Regeneration in [place], [place] [address] [place] [address] Kayla Roberts APRN, C.N.Sumeet., D.N.P. [address] [place] [phone] 05/08/2024 8:20 AM HAT CONE INSPECTOR Comprehensive Visit Department of Dermatology in [place], [place] [address] [place] [phone] Cathryn Win APRN, C.N.P., M.S.N. [address] [place] [phone] Medical Devices Implanted Type Area Manual Arts Therapist Device Identifier Shelf Expiration Date Model / Serial / Lot Premier 4.0 X 12 - [id number] [id number] Implanted:Qty: 1 on 04/04/2015 Cardiac Stent [employer] Scientific Description:Device Manufactu rer - [employer]. Device Status Text - [id number]. Procedures Procedure Name Priority Date/Time Associated Diagnosis [...] AM CDT 03/24/2023 7:08 AM CDT Kayla Robrets APRN, C.N.P., D.N.P. LAB BLOOD ADD-ON [facility] [address] [place] [address], [facility] [address] [place] [address] from Last 3 Months or Most Recently Relevant to Health Maintenance Additional Health Concerns Infection Onset Date Last Indicated Protective Environment 01/11/2023 3 Advance Directives For more information, please contact: [phone] Documents on File Type Date Recorded Patient Pharmacy Laboratory Technician Expl anation Advance Directives 05/31/2016 12:00 AM Vinita cevallos document. See document viewer. * Full Code (Latest Code Status on File) Date Activated Date Inactivated Comments 03/30/2023 3:07 AM 03/30/2023 4:27 PM Question Answer Comments Full Code: Discussed Care Teams Care Aid Relationship Specialty Start Date End Date Elsewhere, Pcp PCP - General Cut Roll Machine Offbearer 05/29/19 [facility] [address] [place], [place] [address] Laboratory Medicine 04/07/20
--- OUTSIDE RECORDS SUMMARY | 2024-02-24 12:37 | XMS_ITS | Encounter Summary ---
Author Organization [facility] Address [address] [place] [address] Care Team Providers Care Turn Operator Name Role Phone Elsewhere, Pcp Primary Care Provider Unavailabl e Reason for Visit * Reason Comments Med Refill Encounter Details Date Type Department Care Team ([facility] st Contact Info) Description 11/28/2023 [facility] in [place], [place] [address] [place] [phone] Julieth Webster R.N., C.C.T.C. [address] [place] [phone] Med Refill Social History Tobacco Use Types [...] relatives? Three times a week 02/11/2020 Attends [employer] Services Not on file 02/10 Active Member [...] Answer Date Recorded PHQ-2 Score 0 05/25/2019 [facility] - Occupational Stress Questionnaire Answer Date [...] Sex Assigned at Male 05/08/2018 12:48 PM SLITTING MACHINE FEEDER Gender Identity Male 05/08/2018 12:48 PM SLITTING MACHINE FEEDER Sexual Orientation Straight 05/08/2018 12 :48 PM SLITTING MACHINE FEEDER documented as of this encounter Plan of Treatment Upcoming Encounters Date Type Department Care Team (Latest Contact Info) Description 04/12/2024 6:50 AM CDT Appointment Department of Laboratory Medicine and Pathology, [place], [place] [address] [place] [address] Kayla Roberts APRN, C.N.P., D.N.P. [address] [place] [phone] 04/12/2024 7:00 AM CDT Appointment Department of Laboratory Medicine and Pathology, [place], [place] [address] [place] [address] Kayla Roberts APRN C.N.P., D.N.P. [address] [place] [phone] 04/12/2024 7:30 AM CDT Appointment Department of Laboratory Medicine and Pathology, [place], [place] [address] [place] [phone] Kayla Roberts APRN, C.N.P., D.N.P. [address] [place] [phone] 04/12/2024 2:30 PM CDT [facility] in [place], [place] [address] [place] [phone] Kayla Roberts APRN C.N.P., D.N.P. [address] [place] [phone] 05/08/2024 8:20 AM SLITTING MACHINE FEEDER Comprehensive Visit Department of Dermatology in [place], [place] [address] [place] [address] Cathryn Win APRN, C.N.P., M.S.N. [address] [place] [address] documented as of this encounter Visit Diagnoses Diagnosis Transplant Renal (HCC)- Primary documented in this encounter Additional Health Concerns Infection Onset Date Last Indicated Resolved Time Protective Environment 01/11/2023 01/11/2023 Assessment Noted Time PHQ-9 Depression Total Score: 0 05/25/20 11:12 AM SLITTING MACHINE FEEDER documented as of this encounter Care Teams Turn Operator Relationship Specialty Start Date End Date Elsewhere, Pcp PCP - General Proposal Development Manager 05/29/19 [place] [address] [place], [place] [address] Laboratory Medicine 04/07/20 documented as of this encounter
--- OUTSIDE RECORDS SUMMARY | 2024-02-24 12:37 | XMS_ITS | Clinical Summary ---
Author Organization [employer] [facility] [employer] [facility] Address [place], [place] [address] Care Team Providers Care Business Solution Analyst Name Role Phone Alonso Coreas MD Primary Care Provider Allergies Active Allergy Reactions Criticality Noted Date Comments Jay Inhibitors Cough 06/05/2013 Believed to have caused cough per [facility] records Atomoxetine Dizziness 05/29/2004 Codeine Other - Describe In Comment Field 05/28/2004 Patient states his pain systems were worse while taking the medication. Other reaction(s): Other (see comments) Phenytoin Hives 02/23/2010 Vegetable Oil Stomach Upset 01/12/2024 Medications Medication Sig Dispensed Refills Start Date [...] Encounters Date Type Department Care Team Description 02/09/2024 Telephone [facility] [address] [place] [address] Kaden Michele MD paperwork & a cd 02/03/2024 Telephone [facility] [address] [place] [address] Armaan Newberry MD Results 02/03/2024 Telephone [facility] [address] [place] [address] Armaan Newberry MD Error-please disregard 02/01/2024 Telephone [facility] [address] [place] [address] Armaan Newberry MD Results (Review Test Results) 01/25/2024 9:51 AM CDT - 01/25/2024 11:59 PM CDT Hospital Encounter [facility] [address] [place] [address] Armaan Newberry MD Pleural effusion 01/25/2024 Travel 01/12/2024 3:40 PM CDT Office Visit [facility] [address] [place] [place] [phone] Amraan Newberry MD Consult 01/12/2024 Travel 12/22/2023 9:00 AM CDT Office Visit [facility] [place] [facility] [address] [place] [address] Kee Pretty MD from Last 3 Months Immunizations Name Administration Dates Next Due Tdap 05/01/2012 Social History Tobacco Use Types Packs/Day Years Used Date Smoking Tobacco: Never Smokeless Tobacco: Never Tobacco Cessation:Counseling Given: Yes Alcohol Use Standard Drinks/Week Comments Yes 0 (1 standard drink = 0.6 oz pur e alcohol) occasional Social Connections Answer Date Recorded Frequency of [...] Pressure 145/92 04/07/2023 11:15 AM CDT Pulse 107 01/12/2024 4:09 PM CDT Temperature 36.9 ??C (98.4 ??F) 04/07/2023 11:15 AM C DT Respiratory Rate 18 02/20/2022 4:22 PM CDT Oxygen Saturation 96% 01/12/2024 4:09 PM CDT Inhaled Oxygen Concentration - - Weight 87.5 kg (193 lb) 01/12/2024 4:09 PM CDT Height 167.6 cm (5' 6) 01/12/2024 4:09 PM CDT Body Mass Index 31.15 01/12/2024 4:09 PM CDT Plan of Treatment Upcoming Encounters Date Type Department Care Team (Late st Contact Info) Description 03/29/2024 1:00 PM CDT Office Visit [facility] [address] [place] [address] Kaden Michele MD [address] [place] [address] 05/14/2024 4:00 PM MARINE ELECTRICIAN HELPER Office Visit [facility] [address] [facility] [address] [place] [phone] Armaan Newberry MD [address] [facility] [address] [place] [address] Health Maintenance Due Date Last Done Comments Pneumococcal series for age 65+ (1 of 2 - PCV) 957 Depression screening for age 12+ 1962 Hepatitis C screening for age 18-79 1968 Zoster (shingles) series for age 50+ (1 of 2) 12/24/18 70 Colonoscopy through age 75 12/25/1995 Lipids for age 45-75 12/25/1995 Medicare Wellness for age 65+ 12/25/2015 COVID-19 vaccine series (2 - Irvin risk series) 09/1108/28/2020 Tetanus booster 05/01/2022 05/01/2012 Influenza for age 65+ 02/12/2024 BMI (ht and wt on same day) for age 18+ 01/11/2025 0 01/12/2024 Tdap Completed 05/01/2012 Procedures Procedure Name Priority Date/Time Associated Diagnosis Comments US THORACENTESIS RIGHT PADMINI 10:50 AM CDT Pleural effusion XR CHEST 2 VIEWS PA AND LATERAL PADMINI 01/25/2024 10:40 AM CDT Pleural effusion from Last 3 Months Results * US THORACENTESIS RIGHT (01/25/2024 10:50 AM CDT) Anatomical Region Laterality Modality CHEST, THORAX Ultrasound 01/25/2024 10:5 0 AM CDT Impressions 01/25/2024 10:58 AM CDT 1. ??Status post right ultrasound-guided thoracentesis. Narrative 01/25/2024 10:58 AM CDT For Patients: As a result of the Century Cures Act, medical imaging exams and procedure reports are released immediately into your electronic medical record. You may view this report before your referring provider. If you have questions, please contact your health care provider. EXAM: 1. RIGHT THORACENTESIS 2. ULTRASOUND GUIDANCE LOCATION: [facility] MEDICAL IMAGING DATE: 01/25/2024 INDICATION: Pleural effusion. PROCEDURE: Informed consent obtained. Time out performed. The chest was prepped and draped in sterile fashion. 10 mL of 1% lidocaine was infused into the local soft tissues. Under direct ultrasound guidance, a 5 [place] catheter system was placed into the pleural effusion. 0.3 liters of clear yellow fluid were removed and sent to lab, if requested. Patient tolerated procedure well. Ultrasound imaging was obtained and placed in the patient's permanent medical record. Procedure Note Endy Anne MD - 01/25/2024 For Patients: As a result of the Cures Act, medical imagingexams and procedure reports are released immediately into your electronicmedical record. You may view this report before your referring provider.If you have questions, please contact your health care provider. EXAM: 1. RIGHT THORACENTESIS 2. ULTRASOUND GUIDANCE LOCATION: [facility] MEDICAL IMAGING DATE: 01/25/2024 INDICATION: Pleural effusion. PROCEDURE: Informed consent obtained. Time out performed. The chest wasprepped and draped in sterile fashion. 10 mL of 1% lidocaine was infusedinto the local soft tissues. Under direct ultrasound guidance, a 5 Frenchcatheter system was placed into the pleural effusion. 0.3 liters of clear yellow fluid were removed and sent to lab, ifrequested. Patient tolerated procedure well. Ultrasound imaging was obtained and placed in the patient's permanentmedical record. IMPRESSION: 1. Status post right ultrasound-guided thoracentesis. Armaan Newberry MD US * XR CHEST 2 VIEWS PA AND LATERAL (01/25/2024 10:40 AM CDT) Anatomical Region Laterality Modality CHEST, THORAX, Lung, HEART Compu ramin Radiography 01/25/2024 10:4 0 AM CDT Impressions 01/25/2024 11:00 AM CDT Small residual right pleural fluid status post interval thoracentesis. No postprocedural pneumothorax. Bibasilar atelectasis. Probable small gastroesophageal hiatal hernia. Mitral annular calcification. Narrative 01/25/2024 11:00 AM CDT For Patients: As a result of the Cures Act, medical imaging exams and procedure reports are released immediately into your electronic medical record. You may view this report before your referring provider. If you have questions, please contact your health care provider. EXAM: XR CHEST 2 VIEWS PA AND LATERAL LOCATION: [facility] DATE: 01/25/2024 INDICATION: Pleural Effusion COMPARISON: 02/20/2022. Procedure Note Endy Anne MD - 01/25/2024 For Patients: As a result of the Cures Act, medical imagingexams and procedure reports are released immediately into your electronicmedical record. You may view this report before your referring provider.If you have questions, please contact your health care provider. EXAM: XR CHEST 2 VIEWS PA AND LATERAL LOCATION: [facility] DATE: 01/25/2024 INDICATION: Pleural Effusion COMPARISON: 02/20/2022. IMPRESSION: Small residual right pleural fluid status post interval thoracentesis. Nopostprocedural pneumothorax. Bibasilar atelectasis. Probable smallgastroesophageal hiatal hernia. Mitral annular calcification. Armaan Newberry MD GENERAL IMAGING from Last 3 Months Care Teams Business Solution Analyst Relationship Specialty Start Date End Date Alonso Coreas MD [address] [place] [address] PCP - General Internal Medicine 10/28/22
--- OUTSIDE RECORDS SUMMARY | 2024-02-24 12:37 | XMS_ITS ---
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 Transplant External Managing Tag Press Operator N/A N/A N/A Events Post-Transplant Pre-Transplant Transplanted: 03/04/1998 Referred: 12/13/1991 Discharged: 03/10/1998 Center waitlisted: 5
--- NOTE | 2024-02-24 13:00 | CRLHL7_ITS ---
For Patients: As a result of the Century Cures Act, medical imaging exams and procedure reports are released immediately into your electronic medical record. You may view this report before your referring provider. If you have questions, please contact your health care provider. INDICATION: Pleural effusion with abdominal distention TECHNIQUE: CT chest, abdomen and pelvis acquired with 93 mL Isovue 370 COMPARISON: None. FINDINGS: CHEST: Cardiovascular structures: The heart is enlarged. No pulmonary emboli. Mediastinum and megan: No mass or adenopathy. Lungs and pleura: Small right effusion. Right basilar atelectasis/consolidation. 7 millimeter nodule right upper lobe on Chest wall and axilla: No mass or adenopathy. ABDOMEN AND PELVIS: Liver: Unremarkable. Gallbladder and bile ducts: Unremarkable. Pancreas: Unremarkable. Spleen: Unremarkable. Adrenal glands: Unremarkable. Kidneys: Atrophic kidneys with nonobstructing renal calcifications. Left pelvic kidney no hydronephrosis. No perinephric fluid collections. GI tract: Rectosigmoid anastomosis right hemicolectomy Vascular structures: Abdominal aorta is normal in caliber. Lymph nodes: Slightly prominent mesenteric nodes example an 8 millimeter short axis right sided mesenteric node /174 Miscellaneous: Abdominal scar Pelvic Organs: Wall thickening urinary bladder which is incompletely distended Bones: No suspicious bone lesions. Unremarkable for age. IMPRESSION: 1. Small right effusion right basilar atelectasis. 7 millimeter right upper lobe nodule follow-up per Fleischner society guidelines. 2. No acute findings in the abdomen or pelvis. Please note that all CT scans at this facility use dose modulation, iterative reconstruction, and/or weight-based dosing when appropriate to reduce radiation dose to as low as reasonably achievable. Dictated by Ria Pace MD @ 02/27/2024 6:13:04 AM (Electronically Signed)
[2024-02-24 13:12] LABS: Creatinine* 1.3 mg/dL (0.5-1.5); Estimated Glomerular Filt Rate 58 ml/min
== END 2024-02-24 12:33 | disposition home or self-care (01) ==
LOC: CT 12:34
PROVIDERS: PCP Internal Medicine; Visit Provider Internal Medicine
DX: J90 Pleural effusion, not elsewhere classified (principal); J98.11 Atelectasis; R14.0 Abdominal distension (gaseous)
CPT/HCPCS: 36415; 71260; 74177; 82565; Q9967

== ENCOUNTER 2024-11-29 15:26 | Outpatient (CLI) | payer MEDICARE, BC, SELFPAY | END 2024-11-29 15:27 | disposition home or self-care (01) | LOC: NFLDREF 15:28 | PROVIDERS: PCP Internal Medicine; Visit Provider Internal Medicine | DX: I10 Essential (primary) hypertension (principal); I48.0 Paroxysmal atrial fibrillation | CPT/HCPCS: 80048 ==